=== PATIENT | female | born 1965 | race Caucasian/White ===

== ENCOUNTER 2016-10-28 12:01 | Emergency (ER) | payer BC ==
[2016-10-28 12:29] VITALS: BP 148/79
--- NOTE | 2016-10-28 13:10 | UC ---
UC General HPI - HPI Summary HPI Summary: complaint of rash that appeared on 10/25/16 thought it was a bug bite but it has spread and become painful now she has burning, tingling and more pain feels more fatgiued than usual denies fever and chills has had shingles in the past with the same symptoms - History of Current Complaint Chief Complaint: UCSkin Stated Complaint: SKIN COMPLAINT Time Seen by Provider: 10/28/16 13:03 Hx Obtained From: Patient - Allergy/Home Medications Allergies/Adverse Reactions: Allergies Allergy/AdvReac Type Severity Reaction Status Date / Time Diphenhydramine Allergy Mild Agitation Verified 10/28/16 12:29 [From Benadryl] Cefaclor [From Ceclor] Allergy Rash Verified 10/28/16 12:29 Codeine Allergy Itching Verified 10/28/16 12:29 Penicillins [PCN] Allergy Rash Verified 10/28/16 12:29 PMH/Surg Hx/FS Hx/Imm Hx Previously Healthy: Yes Endocrine History Of: Reports: Diabetes - DM2 Denies: Thyroid Disease Cardiovascular History Of: Reports: Hypertension Denies: Cardiac Disorders, Pacemaker/ICD, Congestive Heart Failure Respiratory History Of: Reports: Bronchitis Denies: COPD, Asthma GI/ History Of: Denies: Ulcer, Renal Disease Neurological History Of: Reports: Migraine Comment Only: CVA - TIA Psychological History Of: Reports: Depression Cancer History Of: Denies: Breast Cancer - Surgical History Surgical History: Yes Surgery Procedure, Year, and Place: Hysterectomy, appendectomy, tonsillectomy & Adenoidectomy, - Family History Known Family History: Positive: Diabetes Negative: Cardiac Disease, Hypertension - Social History Occupation: Employed Full-time Lives: With Family Alcohol Use: None Alcohol Amount: wine or beer monthly Substance Use Type: None Smoking Status (MU): Never Smoked Tobacco - Immunization History Most Recent Influenza Vaccination: 2014 Most Recent Tetanus Shot: Jun 02 2011 Most Recent Pneumonia Vaccination: Jan 2015 Review of Systems Constitutional: Fatigue Skin: Rash Eyes: Negative ENT: Negative Respiratory: Negative Cardiovascular: Negative Gastrointestinal: Negative Genitourinary: Negative Motor: Negative Neurovascular: Negative Musculoskeletal: Negative Neurological: Negative Psychological: Negative All Other Systems Reviewed And Are Negative: Yes Physical Exam Triage Information Reviewed: Yes Appearance: No Pain Distress, Well-Nourished Vital Signs: Initial Vital Signs Temp 98.1 F 10/28/16 12:24 Pulse 88 10/28/16 12:24 Resp 16 10/28/16 12:24 BP 148/79 10/28/16 12:24 Pulse Ox 98 10/28/16 12:24 Vital Signs Reviewed: Yes Eyes: Positive: Conjunctiva Clear ENT: Positive: Pharynx normal, TMs normal Neck: Positive: No Lymphadenopathy Respiratory: Positive: Lungs clear, Normal breath sounds, No respiratory distress, No accessory muscle use Cardiovascular: Positive: RRR, No Murmur, Pulses Normal Abdomen Description: Positive: Nontender, No Organomegaly, Soft Bowel Sounds: Positive: Present Musculoskeletal: Positive: No Edema Neurological: Positive: Alert Psychological Exam: Normal Skin: Positive: Other - erythematous papules on a erythematous bases along left shoulder C4 dermatome Course/Dx - Course Course Of Treatment: exam completed. will treat with valtrex and pain medication. followup with PCP - Differential Dx - Multi-Symptom Provider Diagnoses: herpes zoster. elevated blood pressure Discharge - Discharge Plan Condition: Stable Disposition: HOME Prescriptions: ValACYclovir (*) [Valtrex 1 GM(*)] 1 gm PO TID #21 tab oxyCODONE/Acetamin 5/325 MG* [Percocet 5/325 TAB*] 1 tab PO Q4H PRN #24 tab MDD 6 PRN Reason: Pain Patient Education Materials: Shingles (ED) Referrals: Darby Holt MD [Primary Care Provider] - Additional Instructions: Please start valtrex as directed Increase fluids and rest Take acetaminophen or ibuprofen for fever or pain Please review your discharge instructions. If your symptoms do not improve please call your primary care provider or return to urgent care. Your blood pressure is elevated. Please contact your primary care provider within 1 -4 weeks for further evaluation.
== END 2016-10-28 13:22 | disposition home or self-care (01) ==
LOC: UCEAST 12:01
DX: B02.9 Zoster without complications (principal); I10 Essential (primary) hypertension; E11.9 Type 2 diabetes mellitus without complications; G43.909 Migraine, unspecified, not intractable, without status migrainosus; F32.9 Major depressive disorder, single episode, unspecified; Z90.710 Acquired absence of both cervix and uterus; Z88.1 Allergy status to other antibiotic agents; Z88.5 Allergy status to narcotic agent; Z88.0 Allergy status to penicillin; Z88.8 Allergy status to other drugs, medicaments and biological substances
CPT/HCPCS: 99212; G0463

== ENCOUNTER 2016-12-09 16:13 | Emergency (ER) | payer BC ==
--- NOTE | 2016-12-09 17:14 | ED ---
Head Injury - HPI Summary HPI Summary: Patient presents to ED after falling off a ladder and striking her head, neck and lower back. She notes to pain in the head, the neck and lower back without radiation. Denies bleeding. Denies neurological symptoms or visual disturbances. Denies speech bnormalities,. Full ROM and strength upon arrival to the ED. Family states patient is acting normally. Denies LOC, confusion. Denies N/V. - History Of Current Complaint Chief Complaint: EDHeadInjury Stated Complaint: FALL OFF 6 FT LADDER, HEAD AND BACK PAIN Time Seen by Provider: 12/09/16 16:43 Hx Obtained From: Patient Mechanism Of Injury: Blunt Trauma Onset/Duration: Started Hours Ago Onset of Pain: Immediate Severity Currently: Moderate Severity Initially: Moderate Pain Intensity: 5 Pain Scale Used: 0-10 Numeric Location of Head Injury: Occipital Character: Sharp, Throbbing Associated Signs And Symptoms: Negative - Risk Factors SDH Risk Factor: Negative Risk Factors For Cervical Spine Injury: Posterior Midline Cervical Spine Tenderness - Allergies/Home Medications Allergies/Adverse Reactions: Allergies Allergy/AdvReac Type Severity Reaction Status Date / Time Diphenhydramine Allergy Mild Agitation Verified 12/09/16 16:33 [From Benadryl] Cefaclor [From Ceclor] Allergy Rash Verified 12/09/16 16:33 Codeine Allergy Itching Verified 12/09/16 16:33 Penicillins [PCN] Allergy Rash Verified 12/09/16 16:33 PMH/Surg Hx/FS Hx/Imm Hx Previously Healthy: Yes Endocrine/Hematology History: Reports: Hx Diabetes - DM2 Denies: Hx Systemic Lupus Erythematosus, Hx Thyroid Disease Cardiovascular History: Reports: Hx Hypertension, Other Cardiovascular Problems/ Disorders - patent foramen ovale on aspirin therapy Denies: Hx Congestive Heart Failure, Hx Pacemaker/ICD Respiratory History: Denies: Hx Asthma, Hx Chronic Obstructive Pulmonary Disease (COPD) GI History: Denies: Hx Ulcer History: Denies: Hx Dialysis, Hx Renal Disease Musculoskeletal History: Reports: Hx Scoliosis - A CHILD Denies: Hx Rheumatoid Arthritis Sensory History: Reports: Hx Contacts or Glasses Opthamlomology History: Reports: Hx Contacts or Glasses Neurological History: Reports: Hx Migraine Psychiatric History: Reports: Hx Depression - Cancer History Hx Chemotherapy: No Hx Radiation Therapy: No - Surgical History Surgery Procedure, Year, and Place: Hysterectomy, appendectomy, tonsillectomy & Adenoidectomy, Hx Anesthesia Reactions: No - Immunization History Date of Tetanus Vaccine: 06/02/11 Date of Influenza Vaccine: 03/17 Hx Pertussis Vaccination: No Immunizations Up to Date: Unable to Obtain/Confirm Infectious Disease History: No Infectious Disease History: Reports: Hx Shingles Denies: Hx Clostridium Difficile, Hx Hepatitis, Hx Human Immunodeficiency Virus (HIV), Hx of Known/Suspected MRSA, Hx Tuberculosis, Traveled Outside the [place] in Last 30 Days - Family History Known Family History: Positive: Diabetes Negative: Cardiac Disease, Hypertension - Social History Occupation: Employed Full-time Lives: With Family Alcohol Use: None Alcohol Amount: wine or beer monthly Hx Substance Use: No Substance Use Type: Reports: None Hx Tobacco Use: No Smoking Status (MU): Never Smoked Tobacco Review of Systems Constitutional: Negative Eyes: Negative ENT: Negative Respiratory: Negative Positive: no symptoms reported, see HPI Positive: Arthralgia, Myalgia Positive: Headache Psychological: Normal All Other Systems Reviewed And Are Negative: Yes Physical Exam - Summary Physical Exam Summary: Complete neuro exam completed and WNL. Normal head/face inspection with no cephalohematoma. Reflexes intact. EOMI, KENNETH. No obvious confusion or memory loss per patient and family. MMSE OK. GCS 15. Patient oriented to person, place and date. No obvious deformity or signs of trauma. Patient denies LOC. Visual acuity intact. ROM, strength, reflexes un upper and lower extremity intact, sensation intact. Patient discharged with return precautions and post- concussive symptoms explained to patient. Patient agrees to follow up and return if needed. Triage Information Reviewed: Yes Vital Signs On Initial Exam: Initial Vitals Temp Pulse Resp Pulse Ox 97.2 F 82 20 95 12/09/16 16:17 12/09/16 16:17 12/09/16 16:17 12/09/16 16:17 Vital Signs Reviewed: Yes Appearance: Positive: Well-Appearing, Well-Nourished Skin: Positive: Warm, Skin Color Reflects Adequate Perfusion Head/Face: Positive: Scalp - tenderness Eyes: Positive: EOMI, KENNETH, Conjunctiva Clear Neck: Positive: Tenderness @ - occipatal area Respiratory/Lung Sounds: Positive: Clear to Auscultation, Breath Sounds Present Cardiovascular: Positive: Normal, RRR, Pulses are Symmetrical in both Upper and Lower Extremities Musculoskeletal: Positive: Pain @ - posterior cervical spine without radiation; lumbar spine without radiation or numbness or tingling Neurological: Positive: Normal, Sensory/Motor Intact, Alert, Oriented to Person Place, Time, CN Intact II-III, Reflexes Intact, Facial Symmetry, Speech Normal Psychiatric: Positive: Normal AVPU Assessment: Alert - Barton Coma Scale Best Eye Response: 4 - Spontaneous Best Motor Response: 6 - Obeys Commands Best Verbal Response: 5 - Oriented Coma Scale Total: 15 Diagnostics - Vital Signs Vital Signs Temp Pulse Resp BP Pulse Ox 12/09/16 16:19 97.2 F 95 20 140/81 95 12/09/16 16:17 97.2 F 82 20 95 - Laboratory Lab Statement: Any lab studies that have been ordered have been reviewed, and results considered in the medical decision making process. Head Injury Course/Dx Course Of Treatment: According to [place] CT Head Rules, CT WAS obtained d/t: 1.Suspected open or depressed skull fracture. 2.Trauma from dangerous mechanism (eg, fall greater than 3 feet, MVA with ejection from vehicle, or pedestrian vs. motor vehicle accident). GCS score >15 at 2h post injury. No suspected open or depressed skull fx, no sign of basal skull fx, no hemotympanum , raccoon eyes, Battles sign, CSF kaden-/rhinorrhea, no emesis after injury, Complete neuro exam completed and WNL. Normal head/face inspection with no cephalohematoma. Reflexes intact. EOMI, KENNETH, visual acuity intact. No obvious confusion or memory loss per patient and family. MMSE OK. GCS 15. Patient oriented to person, place and date. No obvious deformity noted over occipital area. Finger to nose, heel to toe OK. Speech normal, facial symmetry, normal gait, CN II-III intact. Patient denies LOC. ROM, strength, reflexes in upper and lower extremity intact, sensation intact. Patient discharged with return precautions and post-concussive symptoms explained to patient. Patient agrees to follow up and return if needed. CT cervical, lumbar and brain WNL. Patient given tylenol 650mg, flexeril 10mg and note for work. Flexeril rx. - Diagnoses Differential Diagnosis/HQI/PQRI: Cervical Sprain, Concussion Without LOC Provider Diagnoses: Fall from ladder Discharge - Discharge Plan Condition: Stable Disposition: HOME Prescriptions: Cyclobenzaprine TAB* [Flexeril TAB*] 10 mg PO BID PRN #10 tab PRN Reason: Pain Patient Education Materials: Head Injury (ED), Musculoskeletal Pain (ED) Forms: *Work Release Referrals: Darby Holt MD [Primary Care Provider] - Additional Instructions: Dx. Fall Flexeril: This medication is a muscle relaxant and can help relieve muscle spasms, muscle strain, or pain sensations. Flexeril can cause side effects that may impair your thinking or reactions. Be careful if you drive or do anything that requires you to be awake and alert. Avoid drinking alcohol, which can increase some of the side effects of Flexeril. Ibuprofen 600mg three times daily with meals for discomfort. Return to ED if symptoms worsen or fail to improve, notice worsening swelling, warmth or redness around the joint, develop fever, or pain is uncontrolled with OTC medications. Moist heat to the area for comfort. Warm showers or baths may improve symptoms. It is important to remain mobile as tolerated to prevent stiffening of the joints and delay healing. Follow up with your PCP. If symptoms remain for > 6 weeks, please seek special medical attention from an orthopedic physician. Images - Images Head: 1 - pain on palpation 2 - pain on palpation
--- NOTE | 2016-12-09 17:36 | RAD ---
HISTORY: Fall, neck trauma COMPARISONS: None TECHNIQUE: Multiple contiguous axial CT scans were obtained of the cervical spine without intravenous contrast, with coronal and sagittal multiplanar reformations. FINDINGS: BRAIN: The visualized brain is unremarkable CENTRAL CANAL: Evaluation of the central canal is limited on CT technique; however, there is no obvious canalicular mass or epidural hemorrhage. ALIGNMENT: There is straightening with reversal of the normal cervical lordosis. VERTEBRAL BODIES: The odontoid process is intact. The atlantoaxial intervals are symmetric. The vertebral bodies are normal in attenuation, without fracture. There is anterolateral marginal osteophyte formation at C5-C6. JOINTS: There is mild diffuse uncovertebral and facet hypertrophy. There is fusion of the facet joints at C2-C3 on the right MUSCULATURE: Unremarkable INTERVERTEBRAL DISCS: There is diffuse loss of intervertebral disc height. AXIAL IMAGES: C2-C3: There is no osseous neural foraminal narrowing or central canal stenosis. C3-C4: There is no osseous neural foraminal narrowing or central canal stenosis. C4-C5: There is no osseous neural foraminal narrowing or central canal stenosis. C5-C6: There is no osseous neural foraminal narrowing or central canal stenosis. C6-C7: There is no osseous neural foraminal narrowing or central canal stenosis. C7-T1: There is no osseous neural foraminal narrowing or central canal stenosis. SOFT TISSUES: The visualized soft tissues of the neck are unremarkable. The prevertebral fat stripe is preserved. OTHER: None. IMPRESSION: 1. STRAIGHTENING WITH REVERSAL OF THE NORMAL CERVICAL LORDOSIS. 2. MILD DEGENERATIVE DISC DISEASE AND OSTEOARTHRITIS, WITHOUT OSSEOUS NEURAL FORAMINAL NARROWING OR CENTRAL CANAL STENOSIS. 3. NO ACUTE OSSEOUS INJURY TO THE CERVICAL SPINE
--- NOTE | 2016-12-09 17:36 | RAD ---
HISTORY: Fall, back pain COMPARISONS: None TECHNIQUE: Multiple contiguous axial CT scans were obtained of the lumbar spine without intravenous contrast, with coronal and sagittal multiplanar reformations. FINDINGS: SPINAL CANAL: Evaluation of the central canal is limited on CT technique; however, there is no obvious canalicular mass or epidural hemorrhage. ALIGNMENT: The alignment is normal. VERTEBRAL BODIES: The vertebral bodies are preserved in height. The bones are normal in attenuation. There is no displaced fracture JOINTS: There is mild facet hypertrophy change along the lower lumbar spine. MUSCULATURE: Unremarkable INTERVERTEBRAL DISCS: There is mild diffuse loss of intervertebral disc height throughout the spine. AXIAL IMAGES: T12-L1: There is no osseous neural foraminal narrowing or central canal stenosis. L1-L2: There is no osseous neural foraminal narrowing or central canal stenosis. L2-L3: There is no osseous neural foraminal narrowing or central canal stenosis. L3-L4: There is no osseous neural foraminal narrowing or central canal stenosis. L4-L5: There is no osseous neural foraminal narrowing or central canal stenosis. L5-S1: There is no osseous neural foraminal narrowing or central canal stenosis. SOFT TISSUES: The visualized soft tissues of the abdomen are unremarkable. OTHER: There is osteoarthritis of the SI joints IMPRESSION: MILD DEGENERATIVE CHANGES. NO OSSEOUS NEURAL FORAMINAL NARROWING OR CENTRAL CANAL STENOSIS. NO ACUTE OSSEOUS INJURY TO THE LUMBAR SPINE.
--- NOTE | 2016-12-09 17:36 | RAD ---
HISTORY: Head trauma COMPARISONS: None TECHNIQUE: Multiple contiguous axial CT scans were obtained of the head without intravenous contrast. FINDINGS: HEMORRHAGE/INFARCT: There is no hemorrhage or acute infarct. MASSES/SHIFT: There is no mass or shift. EXTRA-AXIAL SPACES: There are no extra-axial fluid collections. SULCI AND VENTRICLES: The sulci and ventricles are normal in size and position for the patient's stated age. CEREBRUM: There are no focal parenchymal abnormalities. BRAINSTEM: There are no focal parenchymal abnormalities. CEREBELLUM: There are no focal parenchymal abnormalities. VESSELS: The vessels are grossly normal. PARANASAL SINUSES: The paranasal sinuses are clear. ORBITS: The orbits are unremarkable. BONES AND SOFT TISSUE: No bone or soft tissue abnormalities are noted. OTHER: None IMPRESSION: NO ACUTE INTRACRANIAL PATHOLOGY.
[2016-12-09] MEDS ORDERED: Acetaminophen TAB* 325 MG PO ONE (17:47)
[2016-12-09] MEDS ORDERED: Cyclobenzaprine TAB* 10 MG PO ONE ×2 (17:47→18:07)
[2016-12-09 18:17] VITALS: BP 125/76
== END 2016-12-09 18:17 | disposition home or self-care (01) ==
LOC: ED 16:13
DX: R51 Headache (principal); E11.9 Type 2 diabetes mellitus without complications; F32.9 Major depressive disorder, single episode, unspecified; W11.XXXA Fall on and from ladder, initial encounter; Y92.9 Unspecified place or not applicable; Z88.0 Allergy status to penicillin; Z88.5 Allergy status to narcotic agent
CPT/HCPCS: 70450; 72125; 72131; 99282; A9270-GY

== ENCOUNTER 2017-07-15 09:06 | Emergency (ER) | payer BC ==
[2017-07-15] MEDS ORDERED: Aspirin TAB* 325 MG PO ONE (09:11)
--- NOTE | 2017-07-15 09:38 | ED ---
HPI Chest Pain - HPI Summary HPI Summary: The patient is a 52-year-old female who presents to the ED with chief complaint of acute onset left sided anterior chest pain radiating to the neck and left arm. History of secundum atrial septal defect and is followed carefully by Dr. Abernathy. Chest pain is described as a discomfort and a pressure and does not radiate to the back. He endorses associated nausea. She has had this in the past, with negative workups. PMH includes type II diabetic, high cholesterol, hypertension. She takes 2 baby aspirin daily, atorvastatin, metformin 1000 mg, sertraline, and valsartan. She denies any abdominal pain, back pain, shortness of breath, headache. Endorses mild weakness, stating she is "fatigued." Extra stressors include work. Denies any smoking history. Family history includes diabetes, but no cardiac history. Symptoms are aggravated by nothing, relieved with nothing. Compared to one hour ago when symptoms began, she states she feels only slightly better, but still endorses pain. - History of Current Complaint Chief Complaint: EDChestPainROMI Time Seen by Provider: 07/15/17 09:10 Hx Obtained From: Patient Onset/Duration: Started Hours Ago Timing: Constant Initial Severity: Mild Current Severity: Mild Pain Intensity: 5 Pain Scale Used: 0-10 Numeric Chest Pain Location: Left Anterior Chest Pain Radiates: Yes Chest Pain Radiates To:: Arm, Jaw, Neck Character: Dull/Aching Aggravating Factor(s): Nothing Alleviating Factor(s): Nothing Associated Signs and Symptoms: Positive: Chest Pain, Nausea. Negative: Chills, Lightheadedness, Palpitations, Cough, Calf Pain/Swelling, Vomiting, URI, Hoarseness - Risk Factors Pulmonary Embolism Risk Factors: Negative TAD Risk Factors: Negative AMI/ACS Risk Factors: Diabetes, Dyslipidemia - Additional Pertinent History Primary Care Physician: [id number] - Allergy/Home Medications Allergies/Adverse Reactions: Allergies Allergy/AdvReac Type Severity Reaction Status Date / Time cefaclor Allergy Rash Verified 07/15/17 10:30 codeine Allergy Itching Verified 07/15/17 10:30 Penicillins Allergy Rash Verified 07/15/17 10:30 Home Medications: Home Medications Atorvastatin* [Lipitor*] 20 mg PO DAILY 07/15/17 [History Confirmed 07/15/17] Calcium Carbonate/Vitamin D3 [Calcium 600 + Vit D Tablet] 2 each PO DAILY [History Confirmed 07/15/17] ValACYclovir (*) [Valtrex 1 GM(*)] 1 gm PO TID PRN 07/15/17 [History Confirmed 07/15/17] PMH/Surg Hx/FS Hx/Imm Hx Previously Healthy: Yes Endocrine/Hematology History: Reports: Hx Diabetes - DM2 Denies: Hx Anticoagulant Therapy, Hx Systemic Lupus Erythematosus, Hx Thyroid Disease Cardiovascular History: Reports: Hx Hypertension, Other Cardiovascular Problems/ Disorders - patent foramen ovale on aspirin therapy Denies: Hx Congestive Heart Failure, Hx Pacemaker/ICD Respiratory History: Denies: Hx Asthma, Hx Chronic Obstructive Pulmonary Disease (COPD) GI History: Denies: Hx Ulcer History: Denies: Hx Dialysis, Hx Renal Disease Musculoskeletal History: Reports: Hx Scoliosis - A CHILD Denies: Hx Rheumatoid Arthritis Sensory History: Reports: Hx Contacts or Glasses Opthamlomology History: Reports: Hx Contacts or Glasses Neurological History: Reports: Hx Migraine Psychiatric History: Reports: Hx Depression - Cancer History Hx Chemotherapy: No Hx Radiation Therapy: No - Surgical History Surgery Procedure, Year, and Place: Hysterectomy, appendectomy, tonsillectomy & Adenoidectomy, Hx Anesthesia Reactions: No - Immunization History Date of Tetanus Vaccine: 06/02/11 Date of Influenza Vaccine: 03/17 Infectious Disease History: No Infectious Disease History: Reports: Hx Shingles Denies: Hx Clostridium Difficile, Hx Hepatitis, Hx Human Immunodeficiency Virus (HIV), Hx of Known/Suspected MRSA, Hx Tuberculosis, Traveled Outside the [place] in Last 30 Days - Family History Known Family History: Positive: Diabetes Negative: Cardiac Disease, Hypertension - Social History Occupation: Employed Full-time Lives: With Family Alcohol Use: None Alcohol Amount: wine or beer monthly Hx Substance Use: No Substance Use Type: Reports: None Hx Tobacco Use: No Smoking Status (MU): Never Smoked Tobacco Review of Systems - ROS Summary Review of Systems Summary: Constitutional: The patient denies fever, GALAN, sweats or chills. HEENT: Head: The patient denies headaches or dizziness. Eyes: The patient denies diplopia, blurry vision, eye pain, eye discharge, photophobia. Throat: The patient denies sore throats or hoarseness. Cardiovascular: The patient denies palpitations, syncope, night cramps, or orthostasis. Endorses left anterior chest pain radiating to the left arm and neck. Respiratory: The patient denies cough, sputum production, hemoptysis, dyspnea, wheezing. Gastrointestinal: The patient denies odynophagia, dysphagia, hematemesis, melenemesis. Denies abdominal pain, nausea or vomiting. Denies constipation or diarrhea. Genitourinary: Patient denies dysuria, hematuria, or pyuria. Patient denies back pain. Denies vaginal discharge, vaginal bleeding. Denies other urinary symptoms. Muscles: The patient denies myalgia, strain or weakness. Joints: The patient denies arthralgia and/or arthritis. Denies edema. Neurologic: The patient denies headache, loss of consciousness, or seizure. Endorses slight weakness. Dermatologic: The patient denies hyperpigmentation, rash, or photosensitivity. Constitutional: Negative Negative: Fever, Chills, Fatigue Eyes: Negative Positive: Chest Pain Respiratory: Negative Positive: Nausea Positive: no symptoms reported, see HPI Musculoskeletal: Negative Skin: Negative Psychological: Normal All Other Systems Reviewed And Are Negative: Yes Physical Exam - Summary Physical Exam Summary: Appearance: WDW, comfortable, pleasant, alert Skin: Soft dry skin, no lesions. Nailbeds pink with no cyanosis or clubbing. No petechia noted. Eyes: KENNETH, EOMI, Conjunctiva pink with no redness or exudates. Mouth: Dentition without lesions. Moist mucosa Neck: Full range of motion. Palpable thyroid. Trachea at midline. No lymphadenopathy. Pulm: Chest symmetrical expansion. No deformities on posterior chest wall. Lungs clear to auscultation and percussion, without adventitious sounds. CV: No JVD. No deformities on anterior chest wall. Heart sounds. RRR. Normal S1 and single S2. No S3, S4, rubs, or murmurs. Carotids 2+ bilaterally without bruits. . exam not performed GI: Bowel sounds WNL in all 4 quadrants. No pain on deep palpation of all 4 quadrants. Negative blackwell's, negative obturator. Psoas not performed. No pain over Mcburney's point. Musculoskeletal: Flexion and extension of neck without limitations. ROM WNL in all extremities. No deformities noted. Pulses +2 bilaterally. Neuro: Motor strength is 5/5 in upper and lower extremities bilaterally. A&OX3 Psych: Logical, coherent Triage Information Reviewed: Yes Vital Signs On Initial Exam: Initial Vitals Temp Pulse Resp BP Pulse Ox 97.8 F 94 18 126/105 96 07/15/17 09:08 07/15/17 09:08 07/15/17 09:08 07/15/17 09:08 07/15/17 09:08 Vital Signs Reviewed: Yes Appearance: Positive: Well-Appearing, Well-Nourished Skin: Positive: Warm, Skin Color Reflects Adequate Perfusion Head/Face: Positive: Normal Head/Face Inspection Eyes: Positive: EOMI, KENNETH, Conjunctiva Clear Neck: Positive: Supple, Nontender, No Lymphadenopathy Respiratory/Lung Sounds: Positive: Clear to Auscultation Cardiovascular: Positive: RRR, Pulses are Symmetrical in both Upper and Lower Extremities Musculoskeletal: Positive: Normal, Strength/ROM Intact Neurological: Positive: Speech Normal Psychiatric: Positive: Normal, Affect/Mood Appropriate AVPU Assessment: Alert Diagnostics - Vital Signs Vital Signs Temp Pulse Resp BP Pulse Ox 07/15/17 09:20 97 07/15/17 09:08 97.8 F 94 18 126/105 96 - Laboratory Result Diagrams: 07/15/17 09:26 07/15/17 09:26 Lab Statement: Any lab studies that have been ordered have been reviewed, and results considered in the medical decision making process. Chest Pain Course/Dx - Course Course Of Treatment: During the course of treatment, the patient is evaluated for left-sided anterior chest pain which radiates into the jaw and down to the left arm, without radiation to the back. Denies any recent URI. X-ray and labs obtained. EKG shows sinus rhythm with a rate of 82. On arrival her vital signs are stable. She is not given aspirin on arrival, as she has taken 162 mg this morning. Low risk for PE, due to no recent travel, no smoking history, no known malignancy, no calf pain, and chest pain is not worse with deep inhalation. 2 troches obtained and both 0.00. X-ray obtained which shows no acute cardiopulmonary disease. Other labs within normal limits except a slightly elevated lactic acid at 2.9, however on previous visits her lactic acid is always slightly elevated. Dr. Gandara called after first troponin obtained and he recommended second troponin and to follow-up with Dr. Ramesh that if everything else appears normal. Prior to discharge, patient endorses much improvement of pain and nausea. She is given a note for work and is okay for discharge at this time. - Diagnoses Provider Diagnoses: Chest pain Discharge - Discharge Plan Condition: Stable Disposition: HOME Patient Education Materials: Chest Pain (ED) Forms: *Work Release Referrals: Darby Holt MD [Primary Care Provider] - Peyman Abernathy MD [Medical Doctor] - Additional Instructions: Please follow-up with Dr. Abernathy Call today for an appointment Continue with her home medications as prescribed If you develop any changing or worsening symptoms, return to the ED immediately
[2017-07-15 09:39] LABS: ABS Basophils 0.1 10^3/ul (0-0.2); ABS Eosinophils 0.1 10^3/ul (0-0.6); ABS Lymphocytes 2.3 10^3/ul (1.0-4.8); ABS Monocytes 0.4 10^3/ul (0-0.8); ABS Neutrophils 3.7 10^3/ul (1.5-7.7); ABS Nucleated RBC 0 10^3/ul; Eosinophil % 1.7 % (0-6); Hematocrit 43 % (35-47); Lymphocyte % 34.6 % (25-47); Mean Corpuscular HGB Conc 35 g/dl (31-36); Mean Corpuscular Hemoglobin 29 pg (27-31); Mean Corpuscular Volume 83 fL (80-97); Mean Platelet Volume 8 um3 (7.4-10.4); Nucleated Red Blood Cells % 0; Platelet Count 255 10^3/ul (150-450); Red Cell Distribution Width 13 % (10.5-15); White Blood Count 6.5 10^3/ul (3.5-10.8)
[2017-07-15] MEDS ORDERED: Ondansetron INJ* 2 MG/ML VIAL IV ONE (09:40)
--- NOTE | 2017-07-15 09:45 | RAD ---
Indication: Mid chest pain that radiates to the LEFT arm and jaw. Comparison: July 31, 2016 chest radiograph and May 06, 2012 CT. Technique: Upright AP 0925 hours Report: Clear lungs and pleural spaces. Negative for pneumothorax. The heart, pulmonary vasculature, and mediastinal contours are unremarkable. Unremarkable osseous structures and soft tissue contours. IMPRESSION: No evidence for acute intrathoracic disease.
[2017-07-15] MEDS ORDERED: NS 0.9% 1000 ML* 1,000 ML IV ONE (10:50)
[2017-07-15 12:37] VITALS: BP 115/83
== END 2017-07-15 12:57 | disposition home or self-care (01) ==
LOC: ED 09:06
DX: R07.9 Chest pain, unspecified (principal); E11.9 Type 2 diabetes mellitus without complications; I10 Essential (primary) hypertension; Q21.1 Atrial septal defect; Z79.82 Long term (current) use of aspirin; E78.5 Hyperlipidemia, unspecified
CPT/HCPCS: 36415; 71045; 80053; 82553; 83605; 83735; 84484; 85025; 93005; 96360; 96374; 99282; J2405

== ENCOUNTER 2017-07-17 10:21 | Emergency (ER) | payer BC ==
[2017-07-17] MEDS ORDERED: Ketorolac INJ* 60 MG/2 ML VIAL IM ONE (10:39)
[2017-07-17] MEDS ORDERED: LORazepam TAB(*) 1 MG PO ONE (10:39)
--- NOTE | 2017-07-17 12:29 | RAD ---
HISTORY: Back pain, subacute trauma COMPARISONS: December 09, 2016 TECHNIQUE: Multiple contiguous axial CT scans were obtained of the lumbar spine without intravenous contrast, with coronal and sagittal multiplanar reformations. FINDINGS: SPINAL CANAL: Evaluation of the central canal is limited on CT technique; however, there is no obvious canalicular mass or epidural hemorrhage. ALIGNMENT: The alignment is normal. VERTEBRAL BODIES: The vertebral bodies are preserved in height. The bones are normal in attenuation. JOINTS: There is no subluxation or dislocation. MUSCULATURE: Unremarkable INTERVERTEBRAL DISCS: There is mild diffuse loss of intervertebral disc height throughout the spine. AXIAL IMAGES: T12-L1: There is no osseous neural foraminal narrowing or central canal stenosis. L1-L2: There is no osseous neural foraminal narrowing or central canal stenosis. L2-L3: There is no osseous neural foraminal narrowing or central canal stenosis. L3-L4: There is no osseous neural foraminal narrowing or central canal stenosis. L4-L5: There is no osseous neural foraminal narrowing or central canal stenosis. L5-S1: There is no osseous neural foraminal narrowing or central canal stenosis. SOFT TISSUES: The visualized soft tissues of the abdomen are unremarkable. OTHER: None IMPRESSION: MILD DEGENERATIVE CHANGES, WITHOUT OSSEOUS NEURAL FORAMINAL NARROWING OR CENTRAL CANAL STENOSIS.
[2017-07-17 12:59] VITALS: BP 106/58
--- NOTE | 2017-07-17 16:47 | ED ---
Laura Solano Gabriel, scribed for Nathanael Velasquez MD on 07/17/17 at 1039 . Back Pain - HPI Summary HPI Summary: This patient is a 52 year old F presenting to [facility] with a chief complaint of lower back pain since last night. The pt states she was pulling up her stockings yesterday and she felt a pop in her back, the pain has gotten worse since yesterday. The patient rates the pain 10/10 in severity and located right above her hips. Symptoms aggravated by movement. Symptoms alleviated by lying on her side. Patient reports the pain radiates down her right leg. Patient denies weakness and bowel/urinary incontinence. She states she can feel something shift when she walks. She has taken Tylenol and muscle relaxer for pain. Pt has no history of back issues. - History of Current Complaint Chief Complaint: EDBackInjuryPain Stated Complaint: BACK PAIN Time Seen by Provider: 07/17/17 10:30 Hx Obtained From: Patient Onset/Duration: Lasting Days - 1, Still Present Onset/Duration: Started Days Ago, Still Present Timing: Constant Severity Initially: Moderate Severity Currently: Severe Pain Intensity: 10 Pain Scale Used: 0-10 Numeric Aggravating Symptom(s): Movement, Bending Associated Signs And Symptoms: Negative: Weakness, Bladder Incontinence, Bowel Incontinence - Allergies/Home Medications Allergies/Adverse Reactions: Allergies Allergy/AdvReac Type Severity Reaction Status Date / Time cefaclor Allergy Rash Verified 07/15/17 10:30 codeine Allergy Itching Verified 07/15/17 10:30 Penicillins Allergy Rash Verified 07/15/17 10:30 PMH/Surg Hx/FS Hx/Imm Hx Endocrine/Hematology History: Reports: Hx Diabetes - DM2 Denies: Hx Anticoagulant Therapy, Hx Systemic Lupus Erythematosus, Hx Thyroid Disease Cardiovascular History: Reports: Hx Hypertension, Other Cardiovascular Problems/ Disorders - patent foramen ovale on aspirin therapy Denies: Hx Congestive Heart Failure, Hx Pacemaker/ICD Respiratory History: Denies: Hx Asthma, Hx Chronic Obstructive Pulmonary Disease (COPD) GI History: Denies: Hx Ulcer History: Denies: Hx Dialysis, Hx Renal Disease Musculoskeletal History: Reports: Hx Scoliosis - A CHILD Denies: Hx Rheumatoid Arthritis Sensory History: Reports: Hx Contacts or Glasses Opthamlomology History: Reports: Hx Contacts or Glasses Neurological History: Reports: Hx Migraine Psychiatric History: Reports: Hx Depression - Cancer History Hx Chemotherapy: No Hx Radiation Therapy: No - Surgical History Surgery Procedure, Year, and Place: Hysterectomy, appendectomy, tonsillectomy & Adenoidectomy, Hx Anesthesia Reactions: No - Immunization History Date of Tetanus Vaccine: 06/02/11 Date of Influenza Vaccine: 03/17 Infectious Disease History: No Infectious Disease History: Reports: Hx Shingles Denies: Hx Clostridium Difficile, Hx Hepatitis, Hx Human Immunodeficiency Virus (HIV), Hx of Known/Suspected MRSA, Hx Tuberculosis, Traveled Outside the [place] in Last 30 Days - Family History Known Family History: Positive: Diabetes Negative: Cardiac Disease, Hypertension - Social History Alcohol Use: None Alcohol Amount: wine or beer monthly Hx Substance Use: No Substance Use Type: Reports: None Hx Tobacco Use: No Smoking Status (MU): Never Smoked Tobacco Review of Systems Respiratory: Negative - incontinence Gastrointestinal: Negative - incontinence Positive: Other - lower back pain Negative: Weakness All Other Systems Reviewed And Are Negative: Yes Physical Exam - Summary Physical Exam Summary: Appearance: The patient is well-nourished in no acute distress and in no acute pain. Skin: The skin is warm and dry and skin color reflects adequate perfusion. HEENT: The head is normocephalic and atraumatic. The pupils are equal and reactive. The conjunctivae are clear and without drainage. Nares are patent and without drainage. Mouth reveals moist mucous membranes and the throat is without erythema and exudate. The external ears are intact. The ear canals are patent and without drainage. The tympanic membranes are intact. Neck: the neck is supple with full range of motion and non-tender. There are no carotid bruits. There is no neck vein distension. Respiratory: Chest is non-tender. Lungs are clear to auscultation and breath sounds are symmetrical and equal. Cardiovascular: Heart is regular rate and rhythm. There is no murmur or rub auscultated. There is no peripheral edema and pulses are symmetrical and equal. Abdomen: The abdomen is soft and non-tender. There are normal bowel sounds heard in all four quadrants and there is no organomegaly palpated. Musculoskeletal: There is no back tenderness noted. Extremities are non-tender with full range of motion. There is good capillary refill. There is no peripheral edema or calf tenderness elicited. Back: Positive straight leg raise at 45 degrees on the right. TTP in parasacral area Neurological: Patient is alert and oriented to person, place and time. The patient has symmetrical motor strength in all four extremities. Cranial nerves are grossly intact. Deep tendon reflexes are symmetrical and equal in all four extremities. Psychiatric: The patient has an appropriate affect and does not exhibit any anxiety or depression. Triage Information Reviewed: Yes Vital Signs On Initial Exam: Initial Vitals Temp Pulse Resp BP Pulse Ox 97.7 F 111 20 143/94 97 07/17/17 10:22 07/17/17 10:22 07/17/17 10:22 07/17/17 10:22 07/17/17 10:22 Vital Signs Reviewed: Yes Diagnostics - Vital Signs Vital Signs Temp Pulse Resp BP Pulse Ox 07/17/17 10:22 97.7 F 111 20 143/94 97 - Laboratory Lab Statement: Any lab studies that have been ordered have been reviewed, and results considered in the medical decision making process. - CT CT L-spine CT Interpretation Completed By: Radiologist - MILD DEGENERATIVE CHANGES, WITHOUT OSSEOUS NEURAL FORAMINAL NARROWING OR CENTRAL CANAL STENOSIS. ED physician has reviewed this radiology report. Back Pain Course/Dx - Course Course Of Treatment: Jaja presented after feeling a pop in her low back yesterday and having increasing pain sinc then to the point she can hardly walk today, I hurts to move but she has no weakness or B&B symptoms. After IM ketorolac and PO lorazepam as a muscle relaxer, she was about half improved and could lie down for the exam. Imaging was negative and I will treat her conservatively with NSAIDs and mucle relaxers. - Diagnoses Provider Diagnoses: Low back strain Discharge - Discharge Plan Condition: Stable Disposition: HOME Prescriptions: LORazepam TAB(*) [Ativan TAB(*)] 1 mg PO Q6H PRN #20 tab MDD 4 PRN Reason: Pain traMADol TAB* [Ultram*] 50 mg PO Q6HR PRN #20 tab MDD 4 PRN Reason: Pain Patient Education Materials: Lorazepam (By mouth), Tramadol (By mouth), Low Back Strain (ED) Forms: *Work Release Referrals: Darby Holt MD [Primary Care Provider] - 3 Days Additional Instructions: Take ibuprofen as needed for pain. RETURN TO EMERGENCY DEPARTMENT FOR ANY NEW OR WORSENING SYMPTOMS The documentation as recorded by the scribe, Sanchez,Nawaf accurately reflects the service I personally performed and the decisions made by me, Nathanael Velasquez MD.
== END 2017-07-17 13:12 | disposition home or self-care (01) ==
LOC: ED 10:21
DX: S39.012A Strain of muscle, fascia and tendon of lower back, initial encounter (principal); M54.5 Low back pain; E11.9 Type 2 diabetes mellitus without complications; Z86.79 Personal history of other diseases of the circulatory system; X50.9XXA Other and unspecified overexertion or strenuous movements or postures, initial encounter; Y92.9 Unspecified place or not applicable
CPT/HCPCS: 72131; 96372; 99282; A9270-GY; J1885

== ENCOUNTER 2018-07-17 09:20 | Emergency (ER) | payer BC ==
[2018-07-17] MEDS ORDERED: Ondansetron ODT TAB* 4 MG SL ONE (09:38)
--- OUTSIDE RECORDS SUMMARY | 2018-07-17 09:48 | XMS REPORT | Continuity of Care Document ---
:1965 External Reference #:[id number] Author Name Ajay Johnson Care Team Providers Name Role Phone Darby Holt MD Primary Care Physician Unavailable Payers Type Date Identification Numbers Payment Provider Subscriber Effective: Policy Number: [id number] [employer] Azul Mcallister 2011 PayID: [id number] [address] [address] [place] [address] Effective: 2011 Policy Number: [id number] [employer] [place] Azul Mcallister Expires: 2011 PayID: [id number] [address] [address] [place] [address] Effective: 2009 Policy Number: [id number] [employer] Azul Mcallister Expires: 2011 Group Name: Ppo [address] PayID: [id number] [place] [id number] Advance Directives Description No Information Available Problems Date Description Provider Status Onset: 05/09/2009 Benign essential hypertension Darby Holt M.D. Active Onset: 06/11/2011 Aneurysm of heart Brennon Canales M.D. Onset: 06/11/2011 Electrocardiogram abnormal Brennon Canales M.D. Onset: 07/23/2011 Ostium secundum type atrial septal Brennon Canales defect [place] Onset: 07/23/2011 Mitral valve disorder Brennon Canales M.D. Onset: 12/29/2014 Diabetes mellitus Darby Holt M.D. 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[place] [employer] Tobacco Use Start: Unknown Never Smoked Cigarettes ETOH Use Denies alcohol use Recreational Drug Use Denies Drug Use Tobacco Use Start: Unknown Patient has never smoked Smoking Status Reviewed: 06/25/18 Patient has never smoked Exercise Type/Frequency Exercises regularly Allergies, Adverse Reactions, Alerts Date Description Reaction Status Severity Comments 03/24/2009 Penicillins rash Active Severe 03/24/2009 ceclor rash Active Severe 03/24/2009 Codeine Sulfate skin itches Active Severe 06/23/2015 Benadryl made her jumpy Active Medications Medication Date Status Form Strength Qnty SIG Indications Ordering Provider Atorvastatin 05/08 Active Tablets 20mg 30tab Take 1 tablet E78.2 Darby Calcium /2017 s by mouth Cotton, every day M.D. Trulicity 05/01 Active Solution 1.5mg/0.5 2ml inject 1 dose E11.65 Darby Pen-Inject ML subcutaneousl Cotton, y once weekly M.D. Irbesartan-Hy 01/28 Active Tablets 150-12.5m 30tab 1 by mouth I10 Darby drochlorothia /2017 g s every day bin Holt M.D. Freestyle 07/03 Active Strip 50uni for testing Darby Lite Test /2016 ts once daily [place] Holt Glucocom 12/29 Active Kit W/Device 1unit for testing Darby Blood Glucose /2014 s once daily Cotton Monitoring M.D. System Value Kit Glucocom Test 12/29 Active Strips 50uni for testing Darby /2014 ts once daily [place] Holt Glucocom 12/29 Active Misc 33G 100un for use once Darby Lancets 33G /2014 its daily Cotton M.DJaxon Sertraline 03/01 Active Tablets 50mg 45tab take 1 and F32.9 Darby HCL /2010 s 1/2 tablet by Cotton, mouth once M.D. daily Calcium-D 03/24 Active Capsules 600-200mg 60cap 2 capsules - s daily [place] Holt Aspirin Active Tablets 81mg 180ta 2 by mouth Darby bs every day [place] Holt Tramadol HCL Active Tablets 50mg 120ta 1 tablet Darby bs every 4 hours Jonathon, as needed for M.D. pain Metformin HCL Active Tablets ER 1000mg bid Gerber ER (Mod) 24HR ALESSANDRA Hwangulicdev 01/28 Hx Solution 0.75mg/0. 2ml inject 0.75mg E11.65 Pen-Inject 5ML once a week Selina Holt M.Gavin 05/01 Losartan 12/30 Hx Tablets 50-12.5mg 30tab 1 by mouth s every day Jonathon rochlorothiaz - [place] candi 01/28 Gabapentin 03/11 Hx Capsules 300mg 90cap take 1 PO 3 B02.9 s times daily Selina Holt M.DJaxon 08/06 Valacyclovir 03/08 Hx Tablets 1gm Skinny, Bertha Estrella MD 03/16 Lipitor 10/19 Hx Tablets 20mg 30tab 1 by mouth E78.2 s every day Selina Holt MSharon 05/08 Azithromycin 07/31 Hx Tablets 250mg 6tabs two tabs day J20. one, one Varn, N.P. - daily till 08/10 Benzonatate 07/31 Hx Capsules 100mg 30cap one by mouth J20.9 s three times Varn, N.P. - daily as 08/14 needed for cough Ventolin HFA 07/31 Hx Aerosol 108(90Bas 1inha 1 to 2 J20. e) ler inhalations Varn, N.P. - mcg/Act every 4 hours 08/06 as needed Tamiflu 07/31 Hx Capsules 75mg 10cap 1 tab by s mouth twice a Jonathon, - day for 5 M.D. Prednisone 12/18 Hx Tablets 20mg 10tab 2 tablets by L23.7 Dylan /2015 s mouth daily Brazilian, MANAGER PUBLIC - x's 5 days in 12/23 the morning Hydroxyzine 12/18 Hx Tablets 25mg 60tab 1-2 tab by L23.7 Dylan HCL s mouth every 6 Brazilian, MANAGER PUBLIC - hours as 07/31 needed for itching Lipitor 11/13 Hx Tablets 10mg 30tab 1 by mouth E78.2 Darby s every day Selina Holt M.D. 10/19 Metformin HCL 11/13 Hx Tablets ER 500mg 90tab take 3 Darby ER 24HR s tablets by Jonathon, - mouth every M.D. Azithromycin 08/03 Hx Tablets 250mg 6tabs 2 tabs by J06.9 Darby mouth on day Jonathon, - 1; 1 tab by [place] 08/10 mouth every day on days 2-5 Metformin HCL 12/29 Hx Tablets 500mg 30tab 1 tab po qd s with dinner Jonathon - M.DJaxon 11/13 Ultram 02/12 Hx Tablets 50mg 60tab 1-2 po bid s prn, take Usha, - with ES M.D. 11/10 tylenol Azithromycin 01/29 Hx Tablets 250mg 6tabs 2 tabs po on 462 day 1; 1 tab Jonathon, - po qd on days M.D. 11/10 2- Zolpidem 10/28 Hx Tablets 5mg 30tab 1/2 po tablet Darby Tartrate s at bedtime as Jonathon - needed M.D. 11/10 Valsartan-Hyd 05/15 Hx Tablets 80-12.5mg 30tab take 1 tablet Darby rochlorothiaz s by mouth once Jonathon, candi - daily M.D. 12/30 Diovan HCT 06/25 Hx Tablets 80-12.5mg 90tab 1 po qd 401.9 Darby /2012 s Selina Holt.Gavin 05/15 Zolpidem 06/19 Hx Tablets 10mg 30tab 1/2 - 1 780.52 Darby Tartrate s tablet once Cotton, - daily at M.D. 05/15 bedtime Azithromycin 05/25 Hx Tablets 250mg 6tabs two tabs day 461.9 one, one Cotton, - daily till M.D. 06/08 Fluticasone 05/25 Hx Suspension 50mcg/Act 1Mont 1 spray each 461.9 Darby h nostril daily Jonathon, - as needed M.D. 06/08 Azithromycin 05/15 Hx Tablets 250mg 6tabs 2 tabs po on 466.0 day 1; 1 tab Cotton, - po qd on days M.D. 05/25 2- Tessalon 05/11 Hx Capsules 200mg 40cap 1 tablet 3 465.9 s times daily Jonathon, - as needed M.D. 11/16 Premarin 03/24 Hx Tablets 1.25mg 90tab 1 tablet s daily Jonathon, - M.D. 05/10 Lisinopril-Hy 03/24 Hx Tablets 20-12.5mg 30tab 1 po qd 401.9 Darby drochlorothi s bin Holt - .DJaxon 03/24 Multi-Vitamin 03/24 Hx Tablets 90tab 1 tablet Darby /Minerals s daily Jonathon - M.D. 08/06 Atacand HCT 03/24 Hx Tablets 16-12.5mg 30tab 1 tablet 401.9 s daily Jonathon - M.D. 06/25 Diovan HCT 03/24 Hx Tablets 80-12.5mg 28tab 401.9 Darby /2009 s Lavelle - M.D. 03/24 Tramadol HCL Hx Tablets 50mg 120ta qid prn Unknown /0000 bs - 09/23 Sulfamethoxaz Hx Tablets 30tab 1 po bid Unknown ole/Trimethop /0000 s rim DS - 01/29 Lidocaine Hx Solution 2% 100ml 10 ml q 3hrs Unknown Viscous /0000 swish and - spit out 11/16 Prednisone Hx Tablets 20mg 20tab ) Unknown /0000 s - 01/29 Zofran Hx Tablets 4mg 30tab 1 tab by Darby /0000 s mouth every 6 Cotton, - hours as M.D. 08/06 needed nausea Lorazepam Hx Tablets 1mg Ron, /0000 Selina Huffman MD 08/06 Immunizations CPT Code Status Date Vaccine Lot # [id number] Given 01/31/2015 Pneumonia Vaccine [id number] Given 03/01/2011 Influenza Virus 3Yrs & Over [id number] Vital Signs Date Vital Result Comment 06/25/2018 3:42pm Height 68 inches 5'8" Weight 173.00 lb with shoes Heart Rate 108 /min BP Systolic Sitting 124 mmHg BP Diastolic Sitting 82 mmHg BMI (Body Mass Index) 26.3 kg/m2 Ejection Fraction 55% stress echo 10/01/17 05/01/2018 7:47am Height 68 inches 5'8" Weight 187.00 lb Heart Rate 97 /min BP Systolic 131 mmHg BP Diastolic 83 mmHg Body Temperature 97.3 F O2 % BldC Oximetry 95 % BMI (Body Mass Index) 28.4 kg/m2 01/28/2018 8:39am Height 68 inches 5'8" Weight 184.00 lb Heart Rate 88 /min BP Systolic Sitting 128 mmHg BP Diastolic Sitting 88 mmHg O2 % BldC Oximetry 95 % BMI (Body Mass Index) 28.0 kg/m2 11/22/2017 8:39am Height 68 inches 5'8" Weight 185.00 lb Heart Rate 97 /min BP Systolic Sitting 131 mmHg BP Diastolic Sitting 83 mmHg O2 % BldC Oximetry 96 % BMI (Body Mass Index) 28.1 kg/m2 10/22/2017 2:26pm Height 68 inches 5'8" Weight 188.00 lb Heart Rate 97 /min BP Systolic 141 mmHg BP Diastolic 99 mmHg O2 % BldC Oximetry 98 % BMI (Body Mass Index) 28.6 kg/m2 08/07/2017 9:17am Height 68 inches 5'8" Weight 188.00 lb w/boots Heart Rate 92 /min BP Systolic Sitting 132 mmHg LA reg cuff BP Diastolic Sitting 98 mmHg LA reg cuff BMI (Body Mass Index) 28.6 kg/m2 Ejection Fraction 55-60% Echo 01/26/15 10/19/2016 10:55am Height 68 inches 5'8" Weight 193.75 lb Heart Rate 112 /min BP Systolic 140 mmHg BP Diastolic 90 mmHg Body Temperature 96.0 F O2 % BldC Oximetry 98 % BMI (Body Mass Index) 29.5 kg/m2 10/18/2016 10:08am Height 68 inches 5'8" Weight 180.00 lb BP Systolic 119 mmHg BP Diastolic 77 mmHg Body Temperature 97.6 F Pain Level 5 BMI (Body Mass Index) 27.4 kg/m2 10/01/2016 2:38pm Heart Rate 93 /min BP Systolic 122 mmHg BP Diastolic 78 mmHg Body Temperature 97.4 F O2 % BldC Oximetry 98 % 07/31/2016 4:16pm Height 68 inches 5'8" Weight 190.00 lb Heart Rate 105 /min BP Systolic 120 mmHg BP Diastolic 78 mmHg Body Temperature 99.7 F O2 % BldC Oximetry 97 % BMI (Body Mass Index) 28.9 kg/m2 06/08/2016 4:37pm Weight 183.00 lb Heart Rate 108 /min BP Systolic 132 mmHg BP Diastolic 90 mmHg BP Systolic Sitting 136 mmHg BP Diastolic Sitting 102 mmHg O2 % BldC Oximetry 96 % 12/19/2015 2:50pm Height 689 inches 57'5" Weight 185.12 lb Heart Rate 107 /min BP Systolic Sitting 126 mmHg BP Diastolic Sitting 82 mmHg Body Temperature 98.1 F BMI (Body Mass Index) 0.3 kg/m2 12/01/2015 9:20am Weight 185.00 lb Heart Rate 90 /min BP Systolic Sitting 122 mmHg BP Diastolic Sitting 80 mmHg Respiratory Rate 15 /min Body Temperature 98.0 F O2 % BldC Oximetry 98 % 11/14/2015 4:07pm Weight 180.00 lb Heart Rate 108 /min BP Systolic Sitting 124 mmHg BP Diastolic Sitting 82 mmHg Respiratory Rate 15 /min Body Temperature 98.6 F O2 % BldC Oximetry 99 % 08/04/2015 3:19pm Heart Rate 86 /min BP Systolic Sitting 126 mmHg BP Diastolic Sitting 95 mmHg Body Temperature 97.4 F O2 % BldC Oximetry 97 % 06/23/2015 11:48am Height 68 inches 5'8" Weight 179.50 lb Heart Rate 87 /min BP Systolic Sitting 132 mmHg BP Diastolic Sitting 86 mmHg Body Temperature 97.1 F Pain Level 4 O2 % BldC Oximetry 95 % BMI (Body Mass Index) 27.3 kg/m2 01/31/2015 4:22pm Height 68 inches 5'8" Weight 187.00 lb Heart Rate 84 /min BP Systolic Sitting 122 mmHg BP Diastolic Sitting 82 mmHg Body Temperature 98.0 F O2 % BldC Oximetry 98 % BMI (Body Mass Index) 28.4 kg/m2 01/04/2015 4:11pm Height 68 inches 5'8" Weight 190.00 lb w/shoes Heart Rate 88 /min BP Systolic Sitting 132 mmHg LA reg cuff BP Diastolic Sitting 84 mmHg LA reg cuff Respiratory Rate 14 /min BMI (Body Mass Index) 28.9 kg/m2 Ejection Fraction 55 Hardeep 06/12/11 12/29/2014 9:30am Heart Rate 107 /min BP Systolic Sitting 125 mmHg BP Diastolic Sitting 86 mmHg 02/16/2014 2:00pm Height 68 inches 5'8" Weight 192.00 lb Heart Rate 80 /min BP Systolic Sitting 136 mmHg BP Diastolic Sitting 88 mmHg Body Temperature 97.2 F BMI (Body Mass Index) 29.2 kg/m2 12/03/2013 3:19pm Height 68 inches 5'8" Weight 189.00 lb Heart Rate 80 /min BP Systolic Sitting 116 mmHg BP Diastolic Sitting 86 mmHg Body Temperature 97.7 F BMI (Body Mass Index) 28.7 kg/m2 11/16/2013 4:16pm Height 68 inches 5'8" Weight 188.25 lb Heart Rate 88 /min BP Systolic Sitting 164 mmHg BP Diastolic Sitting 92 mmHg Respiratory Rate 16 /min BMI (Body Mass Index) 28.6 kg/m2 11/12/2013 10:47am Height 68 inches 5'8" Weight 187.25 lb Heart Rate 92 /min BP Systolic Sitting 128 mmHg BP Diastolic Sitting 84 mmHg Body Temperature 97.4 F O2 % BldC Oximetry 94 % BMI (Body Mass Index) 28.5 kg/m2 11/10/2013 9:56am Height 68 inches 5'8" Weight 187.00 lb Heart Rate 78 /min BP Systolic Sitting 130 mmHg BP Diastolic Sitting 88 mmHg Body Temperature 99.6 F BMI (Body Mass Index) 28.4 kg/m2 01/29/2013 12:58pm Weight 179.00 lb Heart Rate 96 /min BP Systolic Sitting 134 mmHg BP Diastolic Sitting 86 mmHg Body Temperature 98.3 F 11/18/2012 3:59pm Height 67.5 inches 5'7.50" Weight 176.00 lb Heart Rate 92 /min home unit 84 BP Systolic 122 mmHg 123/63 BP Diastolic 64 mmHg 123/63 BMI (Body Mass Index) 27.2 kg/m2 11/05/2012 1:01pm Height 67.5 inches 5'7.50" Weight 178.00 lb Heart Rate 78 /min BP Systolic 144 mmHg BP Diastolic 98 mmHg BMI (Body Mass Index) 27.5 kg/m2 09/23/2012 3:01pm Weight 175.00 lb Heart Rate 74 /min BP Systolic Sitting 126 mmHg BP Diastolic Sitting 82 mmHg 05/15/2012 4:32pm Height 67.5 inches 5'7.50" Weight 175.50 lb Heart Rate 72 /min BP Systolic Sitting 122 mmHg BP Diastolic Sitting 80 mmHg Body Temperature 98.2 F BMI (Body Mass Index) 27.1 kg/m2 07/23/2011 9:45am Height 67.5 inches 5'7.50" Weight 181.00 lb Heart Rate 74 /min BP Systolic 122 mmHg BP Diastolic 78 mmHg BMI (Body Mass Index) 27.9 kg/m2 06/19/2011 12:53pm Height 67.5 inches 5'7.50" Weight 185.00 lb Heart Rate 74 /min BP Systolic Sitting 128 mmHg BP Diastolic Sitting 78 mmHg BMI (Body Mass Index) 28.5 kg/m2 06/11/2011 9:06am Height 67.5 inches 5'7.50" Weight 185.00 lb Heart Rate 76 /min BP Systolic Sitting 124 mmHg L BP Diastolic Sitting 82 mmHg L BMI (Body Mass Index) 28.5 kg/m2 05/25/2011 2:58pm Height 67.5 inches 5'7.50" Weight 183.00 lb Heart Rate 80 /min BP Systolic Sitting 112 mmHg BP Diastolic Sitting 70 mmHg Body Temperature 98.8 F BMI (Body Mass Index) 28.2 kg/m2 05/10/2011 9:25am Height 67.5 inches 5'7.50" Weight 183.00 lb Heart Rate 72 /min BP Systolic Sitting 100 mmHg BP Diastolic Sitting 68 mmHg BMI (Body Mass Index) 28.2 kg/m2 04/09/2011 11:38am Height 67.5 inches 5'7.50" Weight 184.00 lb Heart Rate 76 /min BP Systolic Sitting 128 mmHg BP Diastolic Sitting 74 mmHg BMI (Body Mass Index) 28.4 kg/m2 03/29/2011 1:53pm Height 67.5 inches 5'7.50" Weight 185.00 lb Heart Rate 76 /min BP Systolic Sitting 122 mmHg BP Diastolic Sitting 72 mmHg BMI (Body Mass Index) 28.5 kg/m2 03/13/2011 1:18pm Height 67.5 inches 5'7.50" Weight 184.00 lb Heart Rate 74 /min BP Systolic Sitting 122 mmHg BP Diastolic Sitting 72 mmHg BMI (Body Mass Index) 28.4 kg/m2 03/01/2011 8:58am Height 67.5 inches 5'7.50" Weight 185.00 lb Heart Rate 66 /min BP Systolic Sitting 126 mmHg BP Diastolic Sitting 70 mmHg BMI (Body Mass Index) 28.5 kg/m2 05/15/2010 9:18am Weight 183.00 lb Heart Rate 106 /min BP Systolic 110 mmHg BP Diastolic 80 mmHg Body Temperature 98.3 F O2 % BldC Oximetry 98 % 05/11/2010 1:17pm Weight 183.50 lb Heart Rate 88 /min BP Systolic 110 mmHg BP Diastolic 76 mmHg Body Temperature 99.1 F 07/19/2009 8:50am Height 68 inches 5'8" Weight 184.00 lb Heart Rate 94 /min BP Systolic Sitting 140 mmHg BP Diastolic Sitting 88 mmHg Body Temperature 97.6 F BMI (Body Mass Index) 28.0 kg/m2 03/24/2009 3:05pm Height 68 inches 5'8" Weight 176.25 lb Heart Rate 80 /min BP Systolic Sitting 114 mmHg BP Diastolic Sitting 80 mmHg Respiratory Rate 16 /min Body Temperature 98.8 F BMI (Body Mass Index) 26.8 kg/m2 Results Test Date Facility Test Result H/L Range Note Laboratory test 05/01/2018 [facility] Hemoglobin A1c 8.1 High 5-7 finding Laboratory test 01/28/2018 [facility] Hemoglobin A1c 8.1 High 5-7 finding Lipid Profile 10/29/2017 [facility] Triglycerides 151 mg/dL 1 (Trig/Chol/HDL) [address] [place] [address] [phone] Cholesterol 154 mg/dL 2 HDL Cholesterol 47.1 mg/dL 3 LDL Cholesterol 77 mg/dL 4 Comp Metabolic Panel 10/29/2017 [facility] Sodium 138 mmol/L Low 139-145 [address] [place], [place] [id number] [phone] Potassium 3.7 mmol/L N 3.5-5.0 Chloride 99 mmol/L Low 101-111 Co2 Carbon Dioxide 27 mmol/L N 22-32 Anion Gap 12 mmol/L High 2-11 Glucose 168 mg/dL High 70-100 Blood Urea Nitrogen 15 mg/dL N 6-24 Creatinine 0.62 mg/dL N 0.51-0.95 BUN/Creatinine Ratio 24.2 High 8-20 Calcium 9.6 mg/dL N 8.6-10.3 Total Protein 7.3 g/dL N 6.4-8.9 Albumin 4.6 g/dL N 3.2-5.2 Globulin 2.7 g/dL N 2-4 Albumin/Globulin Ratio 1.7 N 1-3 Total Bilirubin 0.60 mg/dL N 0.2-1.0 Alkaline Phosphatase 127 U/L High 34-104 Alt 25 U/L N 7-52 Ast 26 U/L N 13-39 Egfr Non- 101.5 >60 Egfr 130.5 >60 5 Urine Microalbumin 10/29/2017 [facility] Ur Microalbumin 34.6 mg /L Random [address] (mg/L) [place] [address] [phone] Urine Creatinine 287.10 mg/dL Urine Microalbumin/Creatinine 12.0 ug/mg N <31 Laboratory test 10/29/2017 [facility] Vitamin B12 318 pg/mL N 180-914 [address] [place] [address] [phone] Laboratory test 10/22/2017 [facility] Hemoglobin A1c 8.3 High 5-7 finding Rapid Influenza 09/08/2017 [facility] Influenza A NEGATIVE Negative 7 A & B Molecular [address] [place] [address] [phone] Influenza B Molecular NEGATIVE Negative Laboratory test 07/15/2017 [facility] Troponin-I (TnI) 0.00 ng/ mL <0.[address] [place] [address] [phone] Lipid Profile 10/17/2016 [facility] Triglycerides 139 mg/dL N 8 (Trig/Chol/HDL) [address] [place] [address] [phone] Cholesterol 181 mg/dL N 9 HDL Cholesterol 49.9 mg/dL N 10 LDL Cholesterol 103 mg/dL N 11 Comp Metabolic Panel 10/17/2016 [facility] Sodium 137 mmol/L N 133-[address] [place] [address] [phone] Potassium 3.9 mmol/L N 3.5-5.0 Chloride 100 mmol/L Low 101-111 Co2 Carbon Dioxide 27 mmol/L N 22-32 Anion Gap 10 mmol/L N 2-11 Glucose 159 mg/dL High 70-100 Blood Urea Nitrogen 15 mg/dL N 6-24 Creatinine 0.62 mg/dL N 0.51-0.95 BUN/Creatinine Ratio 24.2 High 8-20 Calcium 9.8 mg/dL N 8.6-10.3 Total Protein 7.5 g/dL N 6.4-8.9 Albumin 4.5 g/dL N 3.2-5.2 Globulin 3.0 g/dL N 2-4 Albumin/Globulin Ratio 1.5 N 1-3 Total Bilirubin 0.50 mg/dL N 0.2-1.0 Alkaline Phosphatase 118 U/L High 34-104 Alt 32 U/L N 7-52 Ast 34 U/L N 13-39 Egfr Non- 101.9 N >60 Egfr 131.0 N >60 12 Urine Microalbumin 10/17/2016 [facility] Urine Creatinine 239.25 mg/dL N Random [address] [place] [address] [phone] Ur Microalbumin (mg/L) 38.9 mg/L N Urine Microalbumin/Creatinine 16.2 ug/mg N <31 Laboratory test 10/01/2016 [facility] Hemoglobin A1c 6.9 5-7 finding Rapid Influenza A 07/31/2016 [facility] Influenza A NEGATIVE N Negative 13 & B Molecular [address] [place] [address] [phone] Influenza B Molecular POSITIVE Abnormal Negative Laboratory test 07/31/2016 [facility] Influenza A & B SEE RESULT [address] [place] [address] [phone] Comp Metabolic 06/05/2016 [facility] Sodium 135 mmol/L N 133- [address] [place] [address] [phone] Potassium 3.8 mmol/L N 3.5-5.0 Chloride 102 mmol/L N 101-111 Co2 Carbon Dioxide 27 mmol/L N 22-32 Anion Gap 6 mmol/L N 2-11 Glucose 143 mg/dL High 70-100 Blood Urea Nitrogen 16 mg/dL N 6-24 Creatinine 0.59 mg/dL N 0.51-0.95 BUN/Creatinine Ratio 27.1 High 8-20 Calcium 9.5 mg/dL N 8.6-10.3 Total Protein 7.2 g/dL N 6.4-8.9 Albumin 4.4 g/dL N 3.2-5.2 Globulin 2.8 g/dL N 2-4 Albumin/Globulin Ratio 1.6 N 1-3 Total Bilirubin 0.50 mg/dL N 0.2-1.0 Alkaline Phosphatase 116 U/L High 34-104 Alt 25 U/L N 7-52 Ast 26 U/L N 13-39 Egfr Non- 107.9 N >60 Egfr 138.8 N >60 15 Laboratory test 06/05/2016 [facility] Hemoglobin A1c 7.0 % High Less than [address] (Glyco HGB) 6.0 [place] [address] [phone] CBC Auto Diff 02/27/2016 [facility] White Blood 8.3 N 3.5- 10.[address] Count 10^3/[place] [address] [phone] Red Blood Count 5.20 10^6/uL N 4.0-5.4 Hemoglobin 14.5 g/dL N 12.0-16.0 Hematocrit 43 % N 35-47 Mean Corpuscular Volume 83 fL N 80-97 Mean Corpuscular Hemoglobin 28 pg N 27-31 Mean Corpuscular HGB Conc 34 g/dL N 31-36 Red Cell Distribution Width 13 % N 10.5-15 Platelet Count 289 10^3/uL N 150-450 Mean Platelet Volume 8 um3 N 7.4-10.4 Abs Neutrophils 6.2 10^3/uL N 1.5-7.7 Abs Lymphocytes 1.4 10^3/uL N 1.0-4.8 Abs Monocytes 0.3 10^3/uL N 0-0.8 Abs Eosinophils 0 10^3/uL N 0-0.6 Abs Basophils 0.4 10^3/uL High 0-0.2 Abs Nucleated RBC 0 10^3/uL N Granulocyte % 74.9 % N 38-83 Lymphocyte % 16.3 % Low 25-47 Monocyte % 3.9 % N 1-9 Eosinophil % 0.3 % N 0-6 Basophil % 4.6 % High 0-2 Nucleated Red Blood Cells % 0 N Basic Metabolic Panel 02/27/2016 [facility] Sodium 135 mmol/L N 133-145 [address] [place] [address] [phone] Potassium 3.5 mmol/L N 3.5-5.0 Chloride 97 mmol/L Low 101-111 Co2 Carbon Dioxide 28 mmol/L N 22-32 Anion Gap 10 mmol/L N 2-11 Glucose 178 mg/dL High 70-100 Blood Urea Nitrogen 17 mg/dL N 6-24 Creatinine 0.68 mg/dL N 0.51-0.95 BUN/Creatinine Ratio 25.0 High 8-20 Calcium 9.8 mg/dL N 8.6-10.3 Egfr Non- 91.6 N >60 Egfr 117.8 N >60 17 Lipid Profile 12/15/2015 [facility] Triglycerides 153 mg/dL N 18 (Trig/Chol/HDL) [address] [place] [address] [phone] Cholesterol 170 mg/dL N 19 HDL Cholesterol 53.7 mg/dL N 20 LDL Cholesterol 86 mg/dL N 21 Comp Metabolic Panel 12/15/2015 [facility] Sodium 138 mmol/L N 133-145 [address] [place] [address] [phone] Potassium 3.9 mmol/L N 3.5-5.0 Chloride 103 mmol/L N 101-111 Co2 Carbon Dioxide 25 mmol/L N 22-32 Anion Gap 10 mmol/L N 2-11 Glucose 129 mg/dL High 70-100 Blood Urea Nitrogen 15 mg/dL N 6-24 Creatinine 0.57 mg/dL N 0.51-0.95 BUN/Creatinine Ratio 26.3 High 8-20 Calcium 9.9 mg/dL N 8.6-10.3 Total Protein 6.9 g/dL N 6.4-8.9 Albumin 4.5 g/dL N 3.2-5.2 Globulin 2.4 g/dL N 2-4 Albumin/Globulin Ratio 1.9 N 1-3 Total Bilirubin 0.40 mg/dL N 0.2-1.0 Alkaline Phosphatase 113 U/L High 34-104 Alt 19 U/L N 7-52 Ast 22 U/L N 13-39 Egfr Non- 112.7 N >60 Egfr 145.0 N >60 22 Laboratory test 11/24/2015 [facility] Point of Care 120 mg/dL High 74-106 [address] [place] [address] [phone] Urine 11/08/2015 [facility] Ur Microalbumin 7.0 mg/L N Microalbumin [address] (mg/L) [place] [address] [phone] Urine Creatinine 32.47 mg/dL N Urine Microalbumin/Creatinine 21.5 ug/mg N <31 Laboratory test 11/08/2015 [facility] Hemoglobin A1c 6.4 % High Less than [address] (Glyco HGB) 6.[address] [place] [address] [phone] Comp Metabolic 11/08/2015 [facility] Sodium 137 N 133-[address] mmol/[place] [address] [phone] Potassium 4.0 mmol/L N 3.5-5.0 Chloride 99 mmol/L Low 101-111 Co2 Carbon Dioxide 30 mmol/L N 22-32 Anion Gap 8 mmol/L N 2-11 Glucose 127 mg/dL High 70-100 Blood Urea Nitrogen 14 mg/dL N 6-24 Creatinine 0.59 mg/dL N 0.51-0.95 BUN/Creatinine Ratio 23.7 High 8-20 Calcium 10.1 mg/dL N 8.6-10.3 Total Protein 7.5 g/dL N 6.4-8.9 Albumin 4.9 g/dL N 3.2-5.2 Globulin 2.6 g/dL N 2-4 Albumin/Globulin Ratio 1.9 N 1-3 Total Bilirubin 0.70 mg/dL N 0.2-1.0 Alkaline Phosphatase 104 U/L N 34-104 Alt 25 U/L N 7-52 Ast 25 U/L N 13-39 Egfr Non- 108.3 N >60 Egfr 139.3 N >60 25 Lipid Profile 11/08/2015 [facility] Triglycerides 265 mg/dL N 26 (Trig/Chol/HDL) [address] [place] [address] [phone] Cholesterol 260 mg/dL N 27 HDL Cholesterol 54.3 mg/dL N 28 LDL Cholesterol 153 mg/dL N 29 Laboratory test 06/20/2015 [facility] Lactic Acid 1.5 mmol/L N 0.5-2.[address] [place] [address] [phone] Comp Metabolic 06/20/2015 [facility] Sodium 138 mmol/L N 133- [address] [place] [address] [phone] Potassium 3.9 mmol/L N 3.5-5.0 Chloride 103 mmol/L N 101-111 Co2 Carbon Dioxide 26 mmol/L N 22-32 Anion Gap 9 mmol/L N 2-11 Glucose 116 mg/dL High 70-100 Blood Urea Nitrogen 13 mg/dL N 6-24 Creatinine 0.56 mg/dL N 0.51-0.95 BUN/Creatinine Ratio 23.2 High 8-20 Calcium 9.5 mg/dL N 8.6-10.3 Total Protein 7.3 g/dL N 6.4-8.9 Albumin 4.6 g/dL N 3.2-5.2 Globulin 2.7 g/dL N 2-4 Albumin/Globulin Ratio 1.7 N 1-3 Total Bilirubin 0.40 mg/dL N 0.2-1.0 Alkaline Phosphatase 112 U/L High 34-104 Alt 22 U/L N 7-52 Ast 20 U/L N 13-39 Egfr Non- 115.1 N >60 Egfr 148.0 N >60 31 Laboratory test 06/20/2015 [facility] Hemoglobin A1c 5.8 % N Less [address] (Glyco HGB) than 6.0 [place] [address] [phone] Urine 02/17/2015 [facility] Ur Microalbumin 8.0 mg/L N Microalbumin [address] (mg/L) [place] [address] [phone] Urine Creatinine 130.88 mg/dL N Urine Microalbumin/Creatinine 6.1 ug/mg N <31 Lipid Profile 12/24/2014 [facility] Triglycerides 168 mg/dL N 33, 34 (Trig/Chol/HDL) [address] [place] [address] [phone] Cholesterol 240 mg/dL N 35 HDL Cholesterol 53.4 mg/dL N 36 LDL Cholesterol 153 mg/dL N 37 Comp Metabolic Panel 12/24/2014 [facility] Sodium 139 mmol/L N 133-[address] [place] [address] [phone] Potassium 3.8 mmol/L N 3.5-5.0 Chloride 102 mmol/L N 101-111 Co2 Carbon Dioxide 27 mmol/L N 22-32 Anion Gap 10 mmol/L N 2-11 Glucose 164 mg/dL High 70-100 Blood Urea Nitrogen 15 mg/dL N 6-24 Creatinine 0.59 mg/dL N 0.51-0.95 BUN/Creatinine Ratio 25.4 High 8-20 Calcium 9.7 mg/dL N 8.6-10.3 Total Protein 7.3 g/dL N 6.4-8.9 Albumin 4.6 g/dL N 3.2-5.2 Globulin 2.7 g/dL N 2-4 Albumin/Globulin Ratio 1.7 N 1-3 Total Bilirubin 0.50 mg/dL N 0.2-1.0 Alkaline Phosphatase 114 U/L High 34-104 Alt 54 U/L High 7-52 Ast 65 U/L High 13-39 Egfr Non- 108.8 N >60 Egfr 139.9 N >60 38 Laboratory test 12/24/2014 [facility] Hemoglobin A1c 6.9 % High Less [address] (Glyco HGB) than 6.0 [place] [address] [phone] Laboratory test 03/25/2014 [facility] Erythrocyte Sed 14 mm/Hr N 0-[address] [place] [address] [phone] Comp Metabolic 03/25/2014 [facility] Sodium 135 N 133-[address] mmol/[place] [address] [phone] Potassium 3.4 mmol/L Low 3.7-5.6 Chloride 100 mmol/L Low 101-111 Co2 Carbon Dioxide 26 mmol/L N 22-32 Anion Gap 9 mmol/L N 2-11 Glucose 168 mg/dL High 70-100 Blood Urea Nitrogen 12 mg/dL N 6-24 Creatinine 0.58 mg/dL N 0.51-0.95 BUN/Creatinine Ratio 20.7 High 8-20 Calcium 9.2 mg/dL N 8.6-10.3 Total Protein 6.9 g/dL N 6.4-8.9 Albumin 4.3 g/dL N 3.2-5.2 Globulin 2.6 g/dL N 2-4 Albumin/Globulin Ratio 1.7 N 1-3 Total Bilirubin 0.50 mg/dL N 0.2-1.0 Alkaline Phosphatase 108 U/L High 34-104 Alt 49 U/L N 7-52 Ast 63 U/L High 13-39 Egfr Non- 111.0 N >60 Egfr 142.7 N >60 40 CBC Auto Diff 03/25/2014 [facility] White Blood 9.8 10^3/uL N 4.8-10.[address] Count [place], [place] [id number] [phone] Red Blood Count 5.01 10^6/uL N 4.0-5.4 Hemoglobin 14.5 g/dL N 12.0-16.0 Hematocrit 42 % N 35-47 Mean Corpuscular Volume 85 fL N 80-97 Mean Corpuscular Hemoglobin 29 pg N 27-31 Mean Corpuscular HGB Conc 34 g/dL N 31-36 Red Cell Distribution Width 13 % N 10.5-15 Platelet Count 259 10^3/uL N 150-450 Mean Platelet Volume 7 um3 Low 7.4-10.4 Abs Neutrophils 7.8 10^3/uL High 1.5-7.7 Abs Lymphocytes 1.4 10^3/uL N 1.0-4.8 Abs Monocytes 0.5 10^3/uL N 0-0.8 Abs Eosinophils 0.1 10^3/uL N 0-0.6 Abs Basophils 0.1 10^3/uL N 0-0.2 Abs Nucleated RBC 0 10^3/uL N Granulocyte % 79.1 % N 38-83 Lymphocyte % 14.4 % Low 25-47 Monocyte % 5.2 % N 1-9 Eosinophil % 0.7 % N 0-6 Basophil % 0.6 % N 0-2 Nucleated Red Blood Cells % 0 N Comp Metabolic Panel 02/16/2014 [facility] Sodium 137 mmol/L N 133-[address] [place] [address] [phone] Potassium 4.1 mmol/L N 3.7-5.6 Chloride 101 mmol/L N 101-111 Co2 Carbon Dioxide 28 mmol/L N 22-32 Anion Gap 8 mmol/L N 2-11 Glucose 137 mg/dL High 70-100 Blood Urea Nitrogen 15 mg/dL N 6-24 Creatinine 0.55 mg/dL N 0.51-0.95 BUN/Creatinine Ratio 27.3 High 8-20 Calcium 9.7 mg/dL N 8.6-10.3 Total Protein 7.2 g/dL N 6.4-8.9 Albumin 4.5 g/dL N 3.2-5.2 Globulin 2.7 g/dL N 2-4 Albumin/Globulin Ratio 1.7 N 1-3 Total Bilirubin 0.40 mg/dL N 0.2-1.0 Alkaline Phosphatase 133 U/L High 34-104 Alt 33 U/L N 7-52 Ast 37 U/L N 13-39 Egfr Non- 118.0 N >60 Egfr 151.7 N >60 41 CBC Auto Diff 02/16/2014 [facility] White Blood 7.6 10^3/uL N 4.8-10.[address] [place] [address] [phone] Red Blood Count 5.20 10^6/uL N 4.0-5.4 Hemoglobin 15.2 g/dL N 12.0-16.0 Hematocrit 44 % N 35-47 Mean Corpuscular Volume 85 fL N 80-97 Mean Corpuscular Hemoglobin 29 pg N 27-31 Mean Corpuscular HGB Conc 34 g/dL N 31-36 Red Cell Distribution Width 13 % N 10.5-15 Platelet Count 288 10^3/uL N 150-450 Mean Platelet Volume 8 um3 N 7.4-10.4 Abs Neutrophils 4.0 10^3/uL N 1.5-7.7 Abs Lymphocytes 2.7 10^3/uL N 1.0-4.8 Abs Monocytes 0.5 10^3/uL N 0-0.8 Abs Eosinophils 0.2 10^3/uL N 0-0.6 Abs Basophils 0.1 10^3/uL N 0-0.2 Abs Nucleated RBC 0.01 10^3/uL N Granulocyte % 53.6 % N 38-83 Lymphocyte % 35.9 % N 25-47 Monocyte % 6.6 % N 1-9 Eosinophil % 2.9 % N 0-6 Basophil % 1.0 % N 0-2 Nucleated Red Blood Cells % 0.1 N Laboratory test 02/16/2014 [facility] Erythrocyte Sed 11 mm/Hr N 0-[address] [place] [address] [phone] Lyme Disease Serology Negative N Negative 42 TSH (Thyroid Stimulating Horm) 1.82 IU/mL N 0.34-5.60 GGTP 81 U/L High 9-64.0 Liver Function 02/04/2014 [facility] Total Protein 7.1 g/dL N 6.4-8.[address] [place] [address] [phone] Albumin 4.5 g/dL N 3.2-5.2 Globulin 2.6 g/dL N 2-4 Albumin/Globulin Ratio 1.7 N 1-3 Total Bilirubin 0.70 mg/dL N 0.2-1.0 Direct Bilirubin 0.10 mg/dL N 0.03-0.18 Indirect Bilirubin 0.6 mg/dL N 0.3-1.0 Alkaline Phosphatase 123 U/L High 34-104 Alt 37 U/L N 7-52 Ast 48 U/L High 13-39 Lipid Profile 09/07/2013 [facility] Triglycerides 154 mg/dL N 43 (Trig/Chol/HDL) [address] [place] [address] [phone] Cholesterol 238 mg/dL N 44 HDL Cholesterol 53.1 mg/dL N 45 LDL Cholesterol 154 mg/dL N 46 Comp Metabolic Panel 09/07/2013 [facility] Sodium 139 mmol/L N 133-[address] [place] [address] [phone] Potassium 3.9 mmol/L N 3.7-5.6 Chloride 101 mmol/L N 101-111 Co2 Carbon Dioxide 30 mmol/L N 22-32 Anion Gap 8 mmol/L N 2-11 Glucose 130 mg/dL High 70-100 Blood Urea Nitrogen 16 mg/dL N 6-24 Creatinine 0.56 mg/dL N 0.51-0.95 BUN/Creatinine Ratio 28.6 High 8-20 Calcium 9.6 mg/dL N 8.6-10.3 Total Protein 7.1 g/dL N 6.4-8.9 Albumin 4.7 g/dL N 3.2-5.2 Globulin 2.4 g/dL N 2-4 Albumin/Globulin Ratio 2.0 N 1-3 Total Bilirubin 0.70 mg/dL N 0.2-1.0 Alkaline Phosphatase 112 U/L High 34-104 Alt 48 U/L N 7-52 Ast 51 U/L High 13-39 Egfr Non- 116.0 N >60 Egfr 149.2 N >60 47 Laboratory test 09/07/2013 [facility] Hemoglobin A1c 6.1 % High Less than [address] 6[address]0 [place] [address] [phone] TSH (Thyroid Stimulating Horm) 2.17 IU/mL N 0.34-5.60 49 Ferritin 158.5 ng/mL N 11-307 50 Hepatitis 09/07/2013 [facility] Hepatitis B Nonreactive N Nonreactive Acute Panel [address] [place] [address] Antigen [phone] Hepatitis B Core IgM Nonreactive N Nonreactive Hepatitis A AB IgM Nonreactive N Nonreactive Hepatitis C Antibody Nonreactive N Nonreactive Throat-Beta 07/11/2013 [facility] Throat Beta (SEE [address] Strep Culture NOTE) [place] [address] [phone] Laboratory test 01/29/2013 [facility] Throat Beta (SEE [address] Strep Culture NOTE) [place] [address] [phone] Laboratory test 01/29/2013 [employer] In House Rapid Strep A neg finding Laboratory test 10/20/2012 [facility] Hemoglobin A1c 6.2 % High Less [address] than 6[address]0 [place] [address] [phone] Comp Metabolic 10/01/2012 [facility] Sodium 137 133-[address] mmol/[place] [address] [phone] Potassium 3.8 mmol/L 3.5-5.0 Chloride 101 mmol/L 101-111 Co2 Carbon Dioxide 28.0 mmol/L 22-32 Anion Gap 8.0 mmol/L 2-11 Glucose 122 mg/dL High 70-100 Blood Urea Nitrogen 13 mg/dL 6-24 Creatinine 0.60 mg/dL 0.50-1.40 BUN/Creatinine Ratio 21.7 High 8-20 Calcium 9.7 mg/dL 8.1-9.9 Total Protein 6.7 g/dL 6.2-8.1 Albumin 4.2 g/dL 3.6-5.4 Globulin 2.5 g/dL 2-4 Albumin/Globulin Ratio 1.7 1-3 Total Bilirubin 0.7 mg/dL 0.4-1.5 Alkaline Phosphatase 117 U/L High 30-110 Alt 29 U/L 14-54 Ast 28 U/L 12-42 Egfr Non- 107.6 >60 Egfr 138.4 >60 54 Lipid Profile 10/01/2012 [facility] Triglycerides 140 mg/dL 40-200 (Trig/Chol/HDL) [address] [place] [address] [phone] Cholesterol 251 mg/dL High Less than 200 HDL Cholesterol 60 mg/dL 40-60 55 Cholesterol/HDL Ratio 4.2 Average 1-4.44 LDL Cholesterol 163.0 mg/dL High Less Than 100 56 Laboratory test 05/14/2012 [facility] Calcium 9.7 mg/dL 8.1- 9.9 finding [address] [place] [address] [phone] Pthi 05/14/2012 [facility] PTH Intact 2.2 pmol/L 1.3-9.0 [address] [place] [address] [phone] Calcium (PTH Intact) 9.7 mg/dL 8.1-9.9 Laboratory test 05/06/2012 [facility] Lipase 32 U/L 22-51 finding [address] [place] [address] [phone] Comp Metabolic Panel 05/06/2012 [facility] Sodium 138 mmol/L 133-145 [address] [place] [address] [phone] Potassium 3.6 mmol/L 3.5-5.0 Chloride 101 mmol/L 101-111 Co2 Carbon Dioxide 29.0 mmol/L 22-32 Anion Gap 8.0 mmol/L 2-11 Glucose 115 mg/dL High 70-100 Blood Urea Nitrogen 14 mg/dL 6-24 Creatinine 0.60 mg/dL 0.50-1.40 BUN/Creatinine Ratio 23.3 High 8-20 Calcium 10.6 mg/dL High 8.1-9.9 Total Protein 7.9 g/dL 6.2-8.1 Albumin 4.5 g/dL 3.6-5.4 Globulin 3.4 GM/DL 2-4 Albumin/Globulin Ratio 1.3 1-3 Total Bilirubin 0.8 mg/dL 0.4-1.5 Alkaline Phosphatase 111 U/L High 30-110 Alt 25 U/L 14-54 Ast 29 U/L 12-42 Egfr Non- 107.6 >60 Egfr 138.4 >60 57 Laboratory test 05/06/2012 [facility] Serum Negative Negative [address] [place] [address] [phone] Laboratory test 05/06/2012 [facility] Inr 0.85 0.82-1.17 [address] [place] [address] [phone] Activated Partial Thrombo Time 34.8 sec 22.18-37.18 CBC Auto Diff 05/06/2012 [facility] White Blood 6.0 10^3/uL 4.8-10.[address] [place] [address] [phone] Red Blood Count 5.00 10^6/uL 4.0-5.4 Hemoglobin 14.8 g/dL 12.0-16.0 Hematocrit 43 % 35-47 Mean Corpuscular Volume 87 fL 80-97 Mean Corpuscular Hemoglobin 30 pg 27-31 Mean Corpuscular HGB Conc 34 g/dL 31-36 Red Cell Distribution Width 13 % 10.5-15 Platelet Count 274 10^3/uL 150-450 Mean Platelet Volume 8 um3 7.4-10.4 Abs Neutrophils 3.1 10^3/uL 1.5-7.7 Abs Lymphocytes 2.4 10^3/uL 1.0-4.8 Abs Monocytes 0.4 10^3/uL 0-0.8 Abs Eosinophils 0.1 10^3/uL 0-0.6 Abs Basophils 0.1 10^3/uL 0-0.2 Abs Nucleated RBC 0.01 10^3/uL Granulocyte % 51.7 % 38-83 Lymphocyte % 39.3 % 25-47 Monocyte % 6.4 % 1-9 Eosinophil % 1.4 % 0-6 Basophil % 1.2 % 0-2 Nucleated Red Blood Cells % 0.1 Urine Microscopic 05/06/2012 [facility] Urine WBC 1+ (<10 None Seen [address] /hpf) [place] [address] [phone] Urine RBC 1+ (<3 /hpf) None Seen Urine Epithelial Cells 1+ Squamous /hpf None Seen Bacteria Urine 1+ None Seen Urinalysis 05/06/2012 [facility] Urine Color Yellow [address] [place] [address] [phone] Urine Appearance Clear Urine Specific [place] 1.014 1.010-1.030 Urine Esterase Trace Abnormal Negative Urine Nitrate Negative Negative Urine Urobilinogen Negative Negative Urine Protein Negative Negative Urine pH 7.0 5-9 Urine Blood Negative Negative Urine Ketones Negative Negative Urine Bilirubin Negative Negative 60 Urine Glucose Negative Negative Laboratory test 04/12/2011 [facility] TSH 1.65 MIU/ML 0.34- 5.60 finding [address] [place] [address] [phone] Comp Metabolic 04/12/2011 [facility] Sodium 137 mmol/L 135- 145 Panel [address] [place] [address] [phone] Potassium 4.0 mmol/L 3.5-5.0 Chloride 102 mmol/L 101-111 Co2 (Carbon Dioxide) 28.0 mmol/L 22-32 Anion Gap 7.0 mmol/L 2-11 61 Glucose 105 mg/dL High 70-100 BUN 12 mg/dL 6-24 Creatinine 0.5 mg/dL Low 0.50-1.40 One Over Creatinine 2.00 BUN/Creatinine Ratio 24.0 High 8-20 Calcium 9.3 mg/dL 8.1-9.9 Total Protein 7.1 GM/DL 6.2-8.1 Albumin 3.9 GM/DL 3.6-5.4 Globulin 3.2 GM/DL 2-4 Albumin/Globulin Ratio 1.2 1-3 Bilirubin Total 0.7 mg/dL 0.4-1.5 62 Alkaline Phosphatase 76 U/L 30-110 Alt (SGPT) 29 U/L 14-54 Ast (Sgot) 40 U/L 12-42 eGFR Non- 133.4 > 60 eGFR 171.6 > 60 63 Lipid Profile 04/12/2011 [facility] Triglyceride 260 mg/dL High 40-200 (Trig/Chol/HDL) [address] [place] [address] [phone] Cholesterol 258 mg/dL High Less Than 200 64 High Density Lipoprotein 60 mg/dL 40-60 65 Cholesterol/HDL Ratio 4.30 AVERAGE 1-4.44 Low Density Lipoprotein 146 mg/dL High Less Than 100 66 Urinalysis 02/28/2011 [facility] Ua Color YELLOW Yellow [address] [place] [address] [phone] Appearance-Urine CLEAR Clear Specific [place]-Ur 1.013 1.010-1.030 Esterase-Urine NEGATIVE Negative Nitrite NEGATIVE Negative [id number] NEGATIVE Negative Protein-Urine NEGATIVE Negative PH-Urine 6.0 5-9 Blood-Urine NEGATIVE Negative Ketones-Urine NEGATIVE Negative Bilirubin-Ur NEGATIVE Negative Glucose-Urine NEGATIVE Negative Laboratory test 02/28/2011 [facility] CPK (Creatine 61 U/L 0- [address] [facility] Kinase) [place] [address] [phone] Troponin-I 0 NG/ML 0-0.06 67 Carbon Monoxide 2.8 % 68 Comp Metabolic Panel 02/28/2011 [facility] Sodium 134 mmol/L Low 135-145 [address] [place] [address] [phone] Potassium 3.8 mmol/L 3.5-5.0 Chloride 101 mmol/L 101-111 Co2 (Carbon Dioxide) 25.0 mmol/L 22-32 Anion Gap 8.0 mmol/L 2-11 69 Glucose 117 mg/dL High 70-100 BUN 11 mg/dL 6-24 Creatinine 0.5 mg/dL Low 0.50-1.40 One Over Creatinine 2.00 BUN/Creatinine Ratio 22.0 High 8-20 Calcium 9.1 mg/dL 8.1-9.9 Total Protein 6.3 GM/DL 6.2-8.1 Albumin 3.8 GM/DL 3.6-5.4 Globulin 2.5 GM/DL 2-4 Albumin/Globulin Ratio 1.5 1-3 Bilirubin Total 0.4 mg/dL 0.4-1.5 70 Alkaline Phosphatase 78 U/L 30-110 Alt (SGPT) 26 U/L 14-54 Ast (Sgot) 37 U/L 12-42 eGFR Non- 133.4 > 60 eGFR 171.6 > 60 71 Laboratory test 02/28/2011 [facility] BNP Evaluatr 9.0 pg/mL 0-[address] [place] [address] [phone] D Dimer Quantitative < 200 NG/ML Less Than 230 72 CBC Auto Diff 02/28/2011 [facility] White Blood 7.7 CUMM 4.8- 10.[address] [place] [address] [phone] Red Cell Count 4.61 CUMM 4.2-5.4 Hemoglobin 14.2 g/dL 12.0-16.0 Hematocrit 40 % 35-47 Mean Corpuscular Volume 87 um3 79-97 Mean Corpuscular Hemoglob 31 pg 27-31 Mean Corpuscular HGB Cone 35 g/dL 32-36 Redcell Distribution WDTH 13 % 10.5-15 Platelet Count 285 CUMM 150-450 Mean Platelet Volume 7.8 um3 7.4-10.4 Gran % 61.8 % 38-83 Lymph % 29.9 % 25-47 Mononuclear % 5.2 % 1-9 Eosinophil % 2.2 % 0-6 Basophil % 0.9 % 0-2 Abs Lymphs 2.3 1.0-4.8 Abs Mononuclear 0.4 0-0.8 Absolute Neutrophil Count 4.8 1.5-7.7 Abs Eosinophils 0.2 0-0.6 Abs Basophils 0.1 0-0.2 Laboratory test 02/28/2011 [facility] Troponin-I 0 NG/ML 0- 0.06 [address] [place] [address] [phone] CKMB 02/28/2011 [facility] CKMB In NG/ML 0.7 NG/ML 0.3-4.[address] [place] [address] [phone] % CKMB 0 %MB 0-9 74 Lipid Profile 08/25/2010 [facility] Triglyceride 199 mg/dL 40 -200 (Trig/Chol/HDL) [address] [place] [address] [phone] Cholesterol 264 mg/dL High Less Than 200 75 High Density Lipoprotein 63 mg/dL High 40-60 76 Cholesterol/HDL Ratio 4.19 AVERAGE 1-4.44 Low Density Lipoprotein 161 mg/dL High Less Than 100 77 Comp Metabolic Panel 08/25/2010 [facility] Sodium 141 mmol/L 135-145 [address] [place] [address] [phone] Potassium 3.9 mmol/L 3.5-5.0 Chloride 105 mmol/L 101-111 Co2 (Carbon Dioxide) 28.0 mmol/L 22-32 Anion Gap 8.0 mmol/L 2-11 78 Glucose 115 mg/dL High 70-100 BUN 13 mg/dL 6-24 Creatinine 0.60 mg/dL 0.50-1.40 One Over Creatinine 1.60 BUN/Creatinine Ratio 21.7 High 8-20 Calcium 9.6 mg/dL 8.1-9.9 Total Protein 7.2 GM/DL 6.2-8.1 Albumin 4.2 GM/DL 3.6-5.4 Globulin 3.0 GM/DL 2-4 Albumin/Globulin Ratio 1.4 1-3 Bilirubin Total 0.9 mg/dL 0.4-1.5 79 Alkaline Phosphatase 82 U/L 30-110 Alt (SGPT) 47 U/L 14-54 Ast (Sgot) 46 U/L High 12-42 eGFR Non- 108.6 > 60 eGFR 139.7 > 60 80 CMP Panel Stat 09/06/2009 [facility] Sodium 137 mmol/L 135- 145 [address] [place] [address] [phone] Potassium 3.3 mmol/L Low 3.5-5.0 Chloride 100 mmol/L Low 101-111 Co2 (Carbon Dioxide) 27.0 mmol/L 22-32 Anion Gap 10.0 mmol/L 2-11 81 Glucose 110 mg/dL High 70-100 82 BUN 14 mg/dL 6-24 Creatinine 0.60 mg/dL 0.50-1.40 One Over Creatinine 1.60 BUN/Creatinine Ratio 23.3 High 8-20 Calcium 9.9 mg/dL 8.1-9.9 83 Total Protein 6.6 GM/DL 6.2-8.1 Albumin 3.9 GM/DL 3.6-5.4 Globulin 2.7 GM/DL 2-4 Albumin/Globulin Ratio 1.4 1-3 Bilirubin Total 0.6 mg/dL 0.4-1.5 84 Alkaline Phosphatase 59 U/L 30-110 Alt (SGPT) 29 U/L 14-54 Ast (Sgot) 32 U/L 12-42 eGFR Non- 116.0 > 60 eGFR 140.3 > 60 85 Laboratory test 09/06/2009 [facility] Amylase Stat 61 U/L 30- [address] [place] [address] [phone] Lipase 20 U/L Low 22-51 Laboratory test 09/06/2009 [facility] Ictotest-Urine NEGATIVE [address] [place] [address] [phone] Urinalysis 09/06/2009 [facility] Ua Color YELLOW Yellow [address] [place] [address] [phone] Appearance-Urine CLEAR Clear Specific [place]-Ur 1.026 1.010-1.030 Esterase-Urine NEGATIVE Negative Nitrite NEGATIVE Negative [id number] NEGATIVE Negative Protein-Urine NEGATIVE Negative PH-Urine 5.0 5-9 Blood-Urine NEGATIVE Negative Ketones-Urine TRACE Abnormal Negative Bilirubin-Ur SEE ICTOTEST Abnormal Negative Glucose-Urine NEGATIVE Negative CBC With 09/06/2009 [facility] White Blood 15.4 CUMM High 4.8- 10.8 Manual Diff [address] [place] [address] [phone] Red Cell Count 4.76 CUMM 4.2-5.4 Hemoglobin 14.5 g/dL 12.0-16.0 Hematocrit 41 % 35-47 Mean Corpuscular Volume 86 um3 79-97 Mean Corpuscular Hemoglob 30 pg 27-31 Mean Corpuscular HGB Cone 35 g/dL 32-36 Redcell Distribution WDTH 13 % 10.5-15 Platelet Count 345 CUMM 150-450 Mean Platelet Volume 7.2 um3 Low 7.4-10.4 Polysegmented Neutrophil 84 % High 38-83 Lymphocyte 8 % Low 25-47 Monocyte 3 % 0-13 Basophil 1 % 0-2 Atypical Lymph 4 % 0-6 Absolute Neutrophil Count 12.9 Anisocytosis SLIGHT Polychromasia SLIGHT Lipid Profile 07/11/2009 [facility] Triglyceride 200 mg/dL 40 -200 (Trig/Chol/HDL) [address] [place] [address] [phone] Cholesterol 247 mg/dL High Less Than 200 87 High Density Lipoprotein 73 mg/dL High 40-60 88 Cholesterol/HDL Ratio 3.38 AVERAGE 1-4.44 Low Density Lipoprotein 134 mg/dL High Less Than 100 89 Basic Metabolic Panel 07/11/2009 [facility] Sodium 139 mmol/L 135-[address] [place] [address] [phone] Potassium 4.3 mmol/L 3.5-5.0 Chloride 104 mmol/L 101-111 Co2 (Carbon Dioxide) 28.0 mmol/L 22-32 Anion Gap 7.0 mmol/L 2-11 90 Glucose 103 mg/dL High 70-100 91 BUN 13 mg/dL 6-24 Creatinine 0.50 mg/dL 0.50-1.40 One Over Creatinine 2.00 BUN/Creatinine Ratio 26.0 High 8-20 Calcium 9.6 mg/dL 8.1-9.9 92 eGFR Non- 143.1 > 60 eGFR 173.2 > 60 93 1 Desirable: <150 Borderline High: 150-199 High: 200-499 Very High: >500 2 Desirable: <200 Borderline High: 200-239 High: >239 3 Low: <40 Desirable: 40-60 High: >60 4 Desirable: <100 Near Optimal: 100-129 Borderline High: 130-159 High: 160-189 Very High: >189 5 Because ethnic data is not always readily available, this report includes an eGFR for both -Americans and non- Americans. The National Kidney Disease Education Program (NKDEP) does not endorse the use of the MDRD equation for patients that are not between the ages of 18 and 70, are , have extremes of body size, muscle mass, or nutritional status, or are non- or non-. According to the National Kidney Foundation, irrespective of diagnosis, the stage of the disease is based on the level of kidney function: Stage Description GFR(mL/min/1.73 m(2)) 1 Kidney damage with normal or decreased GFR 90 2 Kidney damage with mild decrease in GFR 60-89 3 Moderate decrease in GFR 30-59 4 Severe decrease in GFR 15-29 5 Kidney failure <15 (or dialysis) 6 Normal Range 180 to 914 Indeterminate Range 145 to 180 Deficient Range <145 7 Blood Bank Manager: [id number] Desirable <150 Borderline high 150-199 High 200-499 Very High >500 9 Desirable <200 Borderline high 200-239 High >239 10 Low <40 Desirable: 40-60 High: >60 11 Desirable: <100 mg/dL Near Optimal: 100-129 mg/dL Borderline High: 130-159 mg/dL High: 160-189 mg/dL Very High: >189 mg/dL 12 Because ethnic data is not always readily available, this report includes an eGFR for both -Americans and non- Americans. The National Kidney Disease Education Program (NKDEP) does not endorse the use of the MDRD equation for patients that are not between the ages of 18 and 70, are , have extremes of body size, muscle mass, or nutritional status, or are non- or non-. According to the National Kidney Foundation, irrespective of diagnosis, the stage of the disease is based on the level of kidney function: Stage Description GFR(mL/min/1.73 m(2)) 1 Kidney damage with normal or decreased GFR 90 2 Kidney damage with mild decrease in GFR 60-89 3 Moderate decrease in GFR 30-59 4 Severe decrease in GFR 15-29 5 Kidney failure <15 (or dialysis) 13 Blood Bank Manager: [id number] FAHAD MARTIN 14 SEE RESULT BELOW Name: AZUL MCALLISTER : [address]: Eliza Gaxiola NP Acct: [id number] Unit: [id number] AGE: 51 Location: [facility] Re07/31/16 SEX: F Status: REG REF SPEC: [id number] JOY: 07/31/[address]: Eliza Gaxiola NP REQ: [id number] RECD: 07/31/16 STATUS: COMP _ SOURCE: [facility]: ORDERED: Flu A B Request COMMENTS: [id number] Procedure Result Reported Site Rapid Influenza A B Request Final 07/31/162001 ML Specimen received for Influenza A/B Molecular testing * ML - MAIN LAB ([facility]) . END OF REPORT * ML=Testing performed at Main Lab DEPARTMENT OF PATHOLOGY, [address] [place] [id number] Jamir Cardenas M.D. Director [facility] # [id number] 15 Because ethnic data is not always readily available, this report includes an eGFR for both -Americans and non- Americans. The National Kidney Disease Education Program (NKDEP) does not endorse the use of the MDRD equation for patients that are not between the ages of 18 and 70, are , have extremes of body size, muscle mass, or nutritional status, or are non- or non-. According to the National Kidney Foundation, irrespective of diagnosis, the stage of the disease is based on the level of kidney function: Stage Description GFR(mL/min/1.73 m(2)) 1 Kidney damage with normal or decreased GFR 90 2 Kidney damage with mild decrease in GFR 60-89 3 Moderate decrease in GFR 30-59 4 Severe decrease in GFR 15-29 5 Kidney failure <15 (or dialysis) 16 Therapeutic target for the treatment of diabetes Mellitus patients is <7% HBA1C, and in selective patients <6.0%.Please refer to [place] [employer] Diabetic care guidelines for further information. 17 Because ethnic data is not always readily available, this report includes an eGFR for both -Americans and non- Americans. The National Kidney Disease Education Program (NKDEP) does not endorse the use of the MDRD equation for patients that are not between the ages of 18 and 70, are , have extremes of body size, muscle mass, or nutritional status, or are non- or non-. According to the National Kidney Foundation, irrespective of diagnosis, the stage of the disease is based on the level of kidney function: Stage Description GFR(mL/min/1.73 m(2)) 1 Kidney damage with normal or decreased GFR 90 2 Kidney damage with mild decrease in GFR 60-89 3 Moderate decrease in GFR 30-59 4 Severe decrease in GFR 15-29 5 Kidney failure <15 (or dialysis) 18 Desirable <150 Borderline high 150-199 High 200-499 Very High >500 19 Desirable <200 Borderline high 200-239 High >239 20 Low <40 Desirable: 40-60 High: >60 21 Desirable: <100 mg/dL Near Optimal: 100-129 mg/dL Borderline High: 130-159 mg/dL High: 160-189 mg/dL Very High: >189 mg/dL 22 Because ethnic data is not always readily available, this report includes an eGFR for both -Americans and non- Americans. The National Kidney Disease Education Program (NKDEP) does not endorse the use of the MDRD equation for patients that are not between the ages of 18 and 70, are , have extremes of body size, muscle mass, or nutritional status, or are non- or non-. According to the National Kidney Foundation, irrespective of diagnosis, the stage of the disease is based on the level of kidney function: Stage Description GFR(mL/min/1.73 m(2)) 1 Kidney damage with normal or decreased GFR 90 2 Kidney damage with mild decrease in GFR 60-89 3 Moderate decrease in GFR 30-59 4 Severe decrease in GFR 15-29 5 Kidney failure <15 (or dialysis) 23 Blood Bank Manager: [id number] Pa Gore 24 Therapeutic target for the treatment of diabetes Mellitus patients is <7% HBA1C, and in selective patients <6.0%.Please refer to [employer] Diabetic care guidelines for further information. 25 Because ethnic data is not always readily available, this report includes an eGFR for both -Americans and non- Americans. The National Kidney Disease Education Program (NKDEP) does not endorse the use of the MDRD equation for patients that are not between the ages of 18 and 70, are , have extremes of body size, muscle mass, or nutritional status, or are non- or non-. According to the National Kidney Foundation, irrespective of diagnosis, the stage of the disease is based on the level of kidney function: Stage Description GFR(mL/min/1.73 m(2)) 1 Kidney damage with normal or decreased GFR 90 2 Kidney damage with mild decrease in GFR 60-89 3 Moderate decrease in GFR 30-59 4 Severe decrease in GFR 15-29 5 Kidney failure <15 (or dialysis) 26 Desirable <150 Borderline high 150-199 High 200-499 Very High >500 27 Desirable <200 Borderline high 200-239 High >239 28 Low <40 Desirable: 40-60 High: >60 29 Desirable: <100 mg/dL Near Optimal: 100-129 mg/dL Borderline High: 130-159 mg/dL High: 160-189 mg/dL Very High: >189 mg/dL 30 [place] Severe Sepsis and Septic Shock Management Bundle Measure requires all lactic acids initially measuring >2.0mmol/L be repeated. 31 Because ethnic data is not always readily available, this report includes an eGFR for both -Americans and non- Americans. The National Kidney Disease Education Program (NKDEP) does not endorse the use of the MDRD equation for patients that are not between the ages of 18 and 70, are , have extremes of body size, muscle mass, or nutritional status, or are non- or non-. According to the National Kidney Foundation, irrespective of diagnosis, the stage of the disease is based on the level of kidney function: Stage Description GFR(mL/min/1.73 m(2)) 1 Kidney damage with normal or decreased GFR 90 2 Kidney damage with mild decrease in GFR 60-89 3 Moderate decrease in GFR 30-59 4 Severe decrease in GFR 15-29 5 Kidney failure <15 (or dialysis) 32 Therapeutic target for the treatment of diabetes Mellitus patients is <7% HBA1C, and in selective patients <6.0%.Please refer to [place] [employer] Diabetic care guidelines for further information. 33 PT IS FASTING 34 Desirable <150 Borderline high 150-199 High 200-499 Very High >500 35 Desirable <200 Borderline high 200-239 High >239 36 Low <40 Desirable: 40-60 High: >60 37 Desirable: <100 mg/dL Near Optimal: 100-129 mg/dL Borderline High: 130-159 mg/dL High: 160-189 mg/dL Very High: >189 mg/dL 38 Because ethnic data is not always readily available, this report includes an eGFR for both -Americans and non- Americans. The National Kidney Disease Education Program (NKDEP) does not endorse the use of the MDRD equation for patients that are not between the ages of 18 and 70, are , have extremes of body size, muscle mass, or nutritional status, or are non- or non-. According to the National Kidney Foundation, irrespective of diagnosis, the stage of the disease is based on the level of kidney function: Stage Description GFR(mL/min/1.73 m(2)) 1 Kidney damage with normal or decreased GFR 90 2 Kidney damage with mild decrease in GFR 60-89 3 Moderate decrease in GFR 30-59 4 Severe decrease in GFR 15-29 5 Kidney failure <15 (or dialysis) 39 Therapeutic target for the treatment of diabetes Mellitus patients is <7% HBA1C, and in selective patients <6.0%.Please refer to [employer] Diabetic care guidelines for further information. 40 Because ethnic data is not always readily available, this report includes an eGFR for both -Americans and non- Americans. The National Kidney Disease Education Program (NKDEP) does not endorse the use of the MDRD equation for patients that are not between the ages of 18 and 70, are , have extremes of body size, muscle mass, or nutritional status, or are non- or non-. According to the National Kidney Foundation, irrespective of diagnosis, the stage of the disease is based on the level of kidney function: Stage Description GFR(mL/min/1.73 m(2)) 1 Kidney damage with normal or decreased GFR 90 2 Kidney damage with mild decrease in GFR 60-89 3 Moderate decrease in GFR 30-59 4 Severe decrease in GFR 15-29 5 Kidney failure <15 (or dialysis) 41 Because ethnic data is not always readily available, this report includes an eGFR for both -Americans and non- Americans. The National Kidney Disease Education Program (NKDEP) does not endorse the use of the MDRD equation for patients that are not between the ages of 18 and 70, are , have extremes of body size, muscle mass, or nutritional status, or are non- or non-. According to the National Kidney Foundation, irrespective of diagnosis, the stage of the disease is based on the level of kidney function: Stage Description GFR(mL/min/1.73 m(2)) 1 Kidney damage with normal or decreased GFR 90 2 Kidney damage with mild decrease in GFR 60-89 3 Moderate decrease in GFR 30-59 4 Severe decrease in GFR 15-29 5 Kidney failure <15 (or dialysis) 42 Serologic response to B. burgdorferi infection is not detected, but cannot rule out early infection during which low or undetectable antibody levels to B. burgdorferi may be present. If clinically indicated, a new serum specimen should be submitted in 7-14 days. Test Performed by: [facility] - [address] [address] [place]: Bladimir Ortiz III, M.D. 43 Desirable <150 Borderline high 150-199 High 200-499 Very High >500 44 Desirable <200 Borderline high 200-239 High >239 45 Low <40 Desirable: 40-60 High: >60 46 Desirable <100 Near Optimal 100-129 Borderline high 130-159 High 160-189 Very High >189 47 Because ethnic data is not always readily available, this report includes an eGFR for both -Americans and non- Americans. The National Kidney Disease Education Program (NKDEP) does not endorse the use of the MDRD equation for patients that are not between the ages of 18 and 70, are , have extremes of body size, muscle mass, or nutritional status, or are non- or non-. According to the National Kidney Foundation, irrespective of diagnosis, the stage of the disease is based on the level of kidney function: Stage Description GFR(mL/min/1.73 m(2)) 1 Kidney damage with normal or decreased GFR 90 2 Kidney damage with mild decrease in GFR 60-89 3 Moderate decrease in GFR 30-59 4 Severe decrease in GFR 15-29 5 Kidney failure <15 (or dialysis) 48 Therapeutic target for the treatment of diabetes Mellitus patients is <7% HBA1C, and in selective patients <6.0%.Please refer to [employer] Diabetic care guidelines for further information. 49 PT IS FASTING 50 PT IS FASTING 51 RUN DATE: 07/13/13 [facility] LAB LIVE PAGE 1 RUN TIME: [address] [place] [id number] Specimen Inquiry Name: AZUL MCALLISTER : [address]: Blaine Donato MD Acct: [id number] Unit: [id number] AGE: 48 Location: [facility] Re07/11/13 SEX: F Status: DEP ER SPEC: [id number] JOY: 07/11/13-[address] [facility] [address]: Blaine Donato MD REQ: [id number] RECD: 07/11/13 STATUS: MORGAN MORRIS DR: Darby Holt MD _ SOURCE: THROAT SPDESC: ORDERED: Throat Beta Str QUERIES: Medent Number [id number] Procedure Result Verified Site Throat Beta Strep Culture Final 07/13/13- 821 ML Negative For Group A Beta Streptococcus END OF REPORT * ML=Testing performed at Main Lab DEPARTMENT OF PATHOLOGY, [facility] [employer] [place], [place] [address] Jamir Cardenas M.D. Director [facility] Permit #[id number] RUN DATE: 01/31/13 [facility] LAB LIVE PAGE 1 RUN TIME: [address] [facility] [place], [place] [address] Specimen Inquiry Name: AZUL MCALLISTER : [address]: Darby Holt MD Acct: [id number] Unit: [id number] AGE: 48 Location: [facility] Re01/29/13 SEX: F Status: REG REF SPEC: [id number] JOY: 01/29/13-[address] [facility] [address]: Darby Holt MD REQ: [id number] RECD: 01/29/13 STATUS: COMP _ SOURCE: THROAT SPDESC: ORDERED: Throat Beta Str QUERIES: Medent Number [id number] Procedure Result Verified Site Throat Beta Strep Culture Final 01/31/13- 08 ML Negative For Group A Beta Streptococcus END OF REPORT * ML=Testing performed at Main Lab DEPARTMENT OF PATHOLOGY, [address] [place] [address] Jamir Cardenas M.D. Director [facility] Permit #[id number] 53 Therapeutic target for the treatment of diabetes Mellitus patients is <7% HBA1C, and in selective patients <6.0%.Please refer to [employer] Diabetic care guidelines for further information. 54 Because ethnic data is not always readily available, this report includes an eGFR for both -Americans and non- Americans. The National Kidney Disease Education Program (NKDEP) does not endorse the use of the MDRD equation for patients that are not between the ages of 18 and 70, are , have extremes of body size, muscle mass, or nutritional status, or are non- or non-. According to the National Kidney Foundation, irrespective of diagnosis, the stage of the disease is based on the level of kidney function: Stage Description GFR(mL/min/1.73 m(2)) 1 Kidney damage with normal or decreased GFR 90 2 Kidney damage with mild decrease in GFR 60-89 3 Moderate decrease in GFR 30-59 4 Severe decrease in GFR 15-29 5 Kidney failure <15 (or dialysis) 55 HDL Interpretation: Undesirable: High Risk: Less than 40 MG/DL Desirable: Low Risk: Greater than 60 MG/DL 56 LDL Interpretation: Low Risk Optimal Level: LDL Less than 100 MG/DL Near or Above Optimal: LDL 100-129 MG/DL Borderline High Risk: LDL 130-159 MG/DL High Risk: LDL 160-189 MG/DL Very High Risk: LDL Greater than 189 MG/DL 57 Because ethnic data is not always readily available, this report includes an eGFR for both -Americans and non- Americans. The National Kidney Disease Education Program (NKDEP) does not endorse the use of the MDRD equation for patients that are not between the ages of 18 and 70, are , have extremes of body size, muscle mass, or nutritional status, or are non- or non-. According to the National Kidney Foundation, irrespective of diagnosis, the stage of the disease is based on the level of kidney function: Stage Description GFR(mL/min/1.73 m(2)) 1 Kidney damage with normal or decreased GFR 90 2 Kidney damage with mild decrease in GFR 60-89 3 Moderate decrease in GFR 30-59 4 Severe decrease in GFR 15-29 5 Kidney failure <15 (or dialysis) 58 This test detects intact HCG only and is indicated for the early detection of . 59 The INR(International Normalized Ratio) was adopted by the World Health Organization (WHO) in 1983 as a standardized system of reporting PT (Prothrombin Time). The Centers for Disease Control (CDC) states that reporting of PT results in INR only is the preferred method. Recommended INR for Patients on Oral Anticoagulants Prophylaxis 2.0 - 3.0 Treatment of thrombosis 2.0 - 3.0 Prevention of embolism 2.0 - 3.0 Prevention of embolism from prosthetic heart valves 2.5 - 3.5 60 Effective 04/30/12, bilirubin confirmation by ictotest is discontinued. False-positive results for bilirubin may occur due to color interference from large amounts of blood in the urine, very concentrated urine, or drugs that discolor urine such as phenazopyridine(Pyridium). 61 Anion gap measurement may be of limited value in the presence of any alkalosis, especially in a combined acid base disorder. . 62 A metabolite of Naproxen, O-desmethylnaproxen, has been shown to interfere with the Jendrassik-Flaxton method for measuring total bilirubin. Samples from patients who have taken Naproxen have shown spurious elevation in total bilirubin levels. 63 Because ethnic data is not always readily available, this report includes an eGFR for both -Americans and non- Americans. The National Kidney Disease Education Program (NKDEP) does not endorse the use of the MDRD equation for patients that are not between the ages of 18 and 70, are , have extremes of body size, muscle mass, or nutritional status, or are non- or non-. According to the National Kidney Foundation, irrespective of diagnosis, the stage of the disease is based on the level of kidney function: Stage Description GFR(mL/min/1.73 m(2)) 1 Kidney damage with normal or decreased GFR 90 2 Kidney damage with mild decrease in GFR 60-89 3 Moderate decrease in GFR 30-59 4 Severe decrease in GFR 15-29 5 Kidney failure <15 (or dialysis) 64 CHOLESTEROL INTERPRETATION: Desirable: Less than 200 MG/DL Borderline-High Risk: 200-239 MG/DL High-Risk: 240 MG/DL and over 65 HDL INTERPRETATION: Undesirable: High Risk: Less than 40 MG/DL Desirable: Low Risk: Greater than 60 MG/DL 66 LDL INTERPRETATION: Low Risk Optimal Level: LDL Less than 100 MG/DL Near or Above Optimal: LDL 100-129 MG/DL Borderline High Risk: LDL 130-159 MG/DL High Risk: LDL 160-189 MG/DL Very High Risk: LDL Greater than 189 MG/DL 67 New Reference Range and Interpretation effective 03/06/2002 TnI (ng/ml) INTERPRETATION Less Than 0.06 ng/mL NOT SUPPORTIVE OF DIAGNOSIS OF NE 0.06 - 0.50 ng/ml INDETERMINATE: SUGGEST SERIAL STUDIES IF CLINICALLY INDICATED. Greater than 0.5 ng/mL CONSISTENT WITH DIAGNOSIS OF NE . 68 NORMAL RANGE: NONSMOKERS: LESS THAN 5% HEAVY SMOKERS: LESS THAN 10% LIFE THREATENING: OVER 15 % 69 Anion gap measurement may be of limited value in the presence of any alkalosis, especially in a combined acid base disorder. . 70 A metabolite of Naproxen, O-desmethylnaproxen, has been shown to interfere with the Jendrassik-Carlos method for measuring total bilirubin. Samples from patients who have taken Naproxen have shown spurious elevation in total bilirubin levels. 71 Because ethnic data is not always readily available, this report includes an eGFR for both -Americans and non- Americans. The National Kidney Disease Education Program (NKDEP) does not endorse the use of the MDRD equation for patients that are not between the ages of 18 and 70, are , have extremes of body size, muscle mass, or nutritional status, or are non- or non-. According to the National Kidney Foundation, irrespective of diagnosis, the stage of the disease is based on the level of kidney function: Stage Description GFR(mL/min/1.73 m(2)) 1 Kidney damage with normal or decreased GFR 90 2 Kidney damage with mild decrease in GFR 60-89 3 Moderate decrease in GFR 30-59 4 Severe decrease in GFR 15-29 5 Kidney failure <15 (or dialysis) 72 Please note: The following may produce a false positive D Dimer test: - Rheumatoid factor greater than 1400 IU/ml - Plasma hemoglobin greater than 0.5 gm/dl - Bilirubin greater than 18 mg/dl - Triglycerides greater than 1327 mg/dl - FDP greater than 10 ug/ml . 73 New Reference Range and Interpretation effective 03/06/2002 TnI (ng/ml) INTERPRETATION Less Than 0.06 ng/mL NOT SUPPORTIVE OF DIAGNOSIS OF NE 0.06 - 0.50 ng/ml INDETERMINATE: SUGGEST SERIAL STUDIES IF CLINICALLY INDICATED. Greater than 0.5 ng/mL CONSISTENT WITH DIAGNOSIS OF NE . 74 INTERPRETATION %CK-MB < 5% NOT SUPPORTIVE OF DIAGNOSIS OF NE 5 - <10% INDETERMINATE; SUGGEST SERIAL STUDIES IF CLINICALLY INDICATED 10% OR > CONSISTENT WITH DIAGNOSIS OF NE . 75 CHOLESTEROL INTERPRETATION: Desirable: Less than 200 MG/DL Borderline-High Risk: 200-239 MG/DL High-Risk: 240 MG/DL and over 76 HDL INTERPRETATION: Undesirable: High Risk: Less than 40 MG/DL Desirable: Low Risk: Greater than 60 MG/DL 77 LDL INTERPRETATION: Low Risk Optimal Level: LDL Less than 100 MG/DL Near or Above Optimal: LDL 100-129 MG/DL Borderline High Risk: LDL 130-159 MG/DL High Risk: LDL 160-189 MG/DL Very High Risk: LDL Greater than 189 MG/DL 78 Anion gap measurement may be of limited value in the presence of any alkalosis, especially in a combined acid base disorder. . 79 A metabolite of Naproxen, O-desmethylnaproxen, has been shown to interfere with the Jendrassik-Flaxton method for measuring total bilirubin. Samples from patients who have taken Naproxen have shown spurious elevation in total bilirubin levels. 80 Because ethnic data is not always readily available, this report includes an eGFR for both -Americans and non- Americans. The National Kidney Disease Education Program (NKDEP) does not endorse the use of the MDRD equation for patients that are not between the ages of 18 and 70, are , have extremes of body size, muscle mass, or nutritional status, or are non- or non-. According to the National Kidney Foundation, irrespective of diagnosis, the stage of the disease is based on the level of kidney function: Stage Description GFR(mL/min/1.73 m(2)) 1 Kidney damage with normal or decreased GFR 90 2 Kidney damage with mild decrease in GFR 60-89 3 Moderate decrease in GFR 30-59 4 Severe decrease in GFR 15-29 5 Kidney failure <15 (or dialysis) 81 Anion gap measurement may be of limited value in the presence of any alkalosis, especially in a combined acid base disorder. . 82 Note change in reference range as of 01/22/08. The change was based on recommendations from the [place] [employer]. 83 Please note change in reference range effective 07 . 84 A metabolite of Naproxen, O-desmethylnaproxen, has been shown to interfere with the Jendrassik-Flaxton method for measuring total bilirubin. Samples from patients who have taken Naproxen have shown spurious elevation in total bilirubin levels. 85 Because ethnic data is not always readily available, this report includes an eGFR for both -Americans and non- Americans. The National Kidney Disease Education Program (NKDEP) does not endorse the use of the MDRD equation for patients that are not between the ages of 18 and 70, are , have extremes of body size, muscle mass, or nutritional status, or are non- or non-. According to the National Kidney Foundation, irrespective of diagnosis, the stage of the disease is based on the level of kidney function: Stage Description GFR(mL/min/1.73 m(2)) 1 Kidney damage with normal or decreased GFR 90 2 Kidney damage with mild decrease in GFR 60-89 3 Moderate decrease in GFR 30-59 4 Severe decrease in GFR 15-29 5 Kidney failure <15 (or dialysis) 86 ICTOTEST IS A QUALITATIVE CONFIRMATORY TEST FOR BILIRUBIN. 87 CHOLESTEROL INTERPRETATION: Desirable: Less than 200 MG/DL Borderline-High Risk: 200-239 MG/DL High-Risk: 240 MG/DL and over 88 HDL INTERPRETATION: Undesirable: High Risk: Less than 40 MG/DL Desirable: Low Risk: Greater than 60 MG/DL 89 LDL INTERPRETATION: Low Risk Optimal Level: LDL Less than 100 MG/DL Near or Above Optimal: LDL 100-129 MG/DL Borderline High Risk: LDL 130-159 MG/DL High Risk: LDL 160-189 MG/DL Very High Risk: LDL Greater than 189 MG/DL 90 Anion gap measurement may be of limited value in the presence of any alkalosis, especially in a combined acid base disorder. . 91 Note change in reference range as of 01/22/08. The change was based on recommendations from the [place] [employer]. 92 Please note change in reference range effective 07 . 93 Because ethnic data is not always readily available, this report includes an eGFR for both -Americans and non- Americans. The National Kidney Disease Education Program (NKDEP) does not endorse the use of the MDRD equation for patients that are not between the ages of 18 and 70, are , have extremes of body size, muscle mass, or nutritional status, or are non- or non-. According to the National Kidney Foundation, irrespective of diagnosis, the stage of the disease is based on the level of kidney function: Stage Description GFR(mL/min/1.73 m(2)) 1 Kidney damage with normal or decreased GFR 90 2 Kidney damage with mild decrease in GFR 60-89 3 Moderate decrease in GFR 30-59 4 Severe decrease in GFR 15-29 5 Kidney failure <15 (or dialysis) Procedures Date Code Description Status 06/25/2018 26868 EKG Tracing & Interpretation Completed 10/01/2017 53718 ECHO Stress Test Incl Perf Contiuous ekg Monitoring Completed W/Phys Superv 08/07/2017 74903 EKG Tracing & Interpretation Completed 07/31/2017 [id number] Diabetic Retinal Eye Exam Completed 03/19/2017 [id number] Mammogram Completed 04/11/2016 [id number] Diabetic Retinal Eye Exam Completed 12/19/2015 [id number] Mammogram Completed 12/19/2015 [id number] Bone Mineral Density Test Completed 11/24/2015 89319 Stress ECHO Interpretation/Report Hospital Completed 11/24/2015 05281 Treadmill Interp/Report Only Completed 11/24/2015 74527 Stress Test Supervsn W/Out I/R Completed 03/30/2015 [id number] Diabetic Retinal Eye Exam Completed 01/26/2015 13647 ECHO Transthorasic Realtime 2D W Doppler & Color Flow Completed Hosp 01/04/2015 51706 EKG Tracing & Interpretation Completed 03/23/2014 [id number] Mammogram Completed 11/16/2013 53764 EKG Tracing & Interpretation Completed 10/02/2013 83348 ECHO Transthorasic Realtime 2D W Doppler & Color Flow Completed Hosp 02/25/2013 02774 Rad Exam; Elbow, Limited Completed 02/18/2013 02952 Rad Exam; Elbow, Limited Completed 02/12/2013 84558 Closed Treatment Radial Head Or Neck FX W/O Completed Manipulation 11/05/2012 33828 EKG Tracing & Interpretation Completed 10/30/2012 98840 Color Flow Doppler/Interp & Reprt Completed 10/30/2012 41352 Color Flow Doppler/Interp & Reprt Completed 10/30/2012 73972 ECHO Transthorasic Realtime 2D W Doppler & Color Flow Completed Hosp 10/30/2012 91870 ECHO Transthorasic Realtime 2D W Doppler & Color Flow Completed Hosp 10/30/2012 54504 Pulse Wave/Continuous-Interp.RPT Completed 10/30/2012 02820 Pulse Wave/Continuous-Interp.RPT Completed 10/07/2012 [id number] Mammogram Completed 06/12/2011 94043 Echocardiography, Transesophageal, Real Time W/Image Completed 2D W/W/O M-M 06/12/2011 34571 Pulse Wave/Continuous-Interp.RPT Completed 06/12/2011 83254 Color Flow Doppler/Interp & Reprt Completed 06/11/2011 67534 EKG Tracing & Interpretation Completed 04/10/2011 42444 Color Flow Doppler/Interp & Reprt Completed 04/10/2011 16237 Pulse Wave/Continuous-Interp.RPT Completed 04/10/2011 70816 ECHO Transthorasic Realtime 2D W Doppler & Color Flow Completed Hosp 06/06/2010 [id number] Mammogram Completed Encounters Type Date Location Provider Dx Diagnosis Office Visit 05/01/2018 [facility] Internal [place] E11.65 Type 2 diabetes 7:40a Elaine Holt M.D. mellitus with [place] hyperglycemia I10 Essential (primary) hypertension Z12.11 Encounter for screening for malignant neoplasm of colon Office Visit 01/28/2018 [facility] Internal [place] E11.65 Type 2 diabetes 8:40a Elaine Holt M.D. mellitus with [place] hyperglycemia R19.7 Diarrhea, unspecified I10 Essential (primary) hypertension E11.65 Type 2 diabetes mellitus with hyperglycemia Office Visit 11/22/2017 [facility] Internal [place] E11.65 Type 2 diabetes 8:40a Elaine Holt M.D. mellitus with [place] hyperglycemia Office Visit 10/22/2017 [facility] Dermatology [place], L23.9 Allergic contact 4:40p dermatitis, unspecified cause Office Visit 10/22/2017 [facility] [place] R21 Rash and other 2:40p Elaine Holt M.D. nonspecific skin [place] eruption E11.9 Type 2 diabetes mellitus without complications F32.89 Other specified depressive episodes Z12.11 Encounter for screening for malignant neoplasm of colon Office Visit 08/07/2017 9:30a [facility] Susie SJaxon E11.9 Type 2 diabetes Foster, N.P. mellitus without complications I10 Essential (primary) hypertension R07.9 Chest pain, unspecified Office Visit 03/11/2017 [facility] [place] B02.9 Zoster without 1:40p Elaine Holt M.D. complications [place] Office Visit 10/19/2016 [facility] [place] Z00.00 Encntr for general 11:20a Elaine Holt M.D. adult medical exam [place] w/o abnormal findings E11.9 Type 2 diabetes mellitus without complications I10 Essential (primary) hypertension Z12.31 Encntr screen mammogram for malignant neoplasm of breast Z12.11 Encounter for screening for malignant neoplasm of colon Office Visit 10/18/2016 10:00a Orthopedic Jessica Beth79.671 Pain in Services Of Latisah Stark right foot Office Visit 10/01/2016 2:40p [facility] [place] M79.671 Pain in Elaine Holt M.D. right foot [place] E11.9 Type 2 diabetes mellitus without complications Office Visit 07/31/2016 4:20p [facility] Eliza Gaxiola, J20.9 Acute bronchitis, Medicine - N.P. unspecified [place] Office Visit 06/08/2016 4:00p [facility] [place] E11.9 Type 2 diabetes Elaine Holt M.D. mellitus without [place] complications I10 Essential (primary) hypertension E78.2 Mixed hyperlipidemia Office Visit 12/19/2015 2:00p [facility] Dylan Dewitt, L23.7 Allergic contact Medicine - [place] MANAGER PUBLIC dermatitis due to Rd plants, except food L23.9 Allergic contact dermatitis, unspecified cause Office Visit 12/01/2015 [facility] [place] R68.84 Jaw pain 9:20a Elaine Holt M.D. [place] Office Visit 11/24/2015 [facility] R07.9 Chest pain, 9:40a Assoc,nikolay Gray, MANAGER PUBLIC unspecified Hospitalists E11.9 Type 2 diabetes mellitus without complications E87.2 Acidosis Office Visit 11/14/2015 4:00p [facility] [place] E11.9 Type 2 diabetes Elaine Holt M.D. mellitus without [place] complications E78.2 Mixed hyperlipidemia I10 Essential (primary) hypertension Office Visit 08/04/2015 3:20p [facility] [place] J06.9 Acute upper Elaine Holt M.D. respiratory [place] infection, unspecified Office Visit 06/23/2015 11:40a [facility] [place] R51 Headache Elaine Holt M.D. [place] E11.9 Type 2 diabetes mellitus without complications Office 06/21/2015 Neurohospitalist Anderson Carter G43.909 Migraine, unsp, Visit 3:40p [facility] [place] Cristina not intractable, without status migrainosus A08.4 Viral intestinal infection, unspecified Office Visit 06/21/2015 10:42a [facility] Ludy A08.4 Viral intestinal Assoc,nikolay Guevara M.D. infection, Hospitalists unspecified E11.9 Type 2 diabetes mellitus without complications I10 Essential (primary) hypertension Office Visit 06/20/2015 10:41a [facility] Chari Boston A08.4 Viral intestinal Assoc,nikolay Guevara M.D. infection, Hospitalists unspecified E11.9 Type 2 diabetes mellitus without complications I10 Essential (primary) hypertension Office Visit 01/31/2015 4:00p [facility] [place] 250.00 Diabetes Elaine Holt M.D. Mellitus W/O [place] Compl Type II Or Unspec Controlled V03.82 Streptococcus Pneumoniae Vaccination Spec Other Office Visit 01/04/2015 Julian Morley S. 272.2 Hyperlipidemia 4:20p Cardiology [place] Abernathy Mixed 401.1 Hypertension Benign 745.5 Atrial Septal Defect Ostium Secundum Type Office Visit 12/29/2014 9:40a [facility] [place] 250.00 Diabetes Elaine Holt M.D. Mellitus W/O [place] Compl Type II Or Unspec Controlled 272.2 Hyperlipidemia Mixed Office Visit 02/16/2014 2:00p [facility] [place] 780.79 Malaise And Elaine Holt M.D. Fatigue Other [place] Office Visit 12/03/2013 3:00p [facility] [place] V70.0 Examination Elaine Holt M.D. [facility] Routine AT Health Care Facility V76.10 Screening For Malignant Neoplasm Breast 401.1 Hypertension Benign 790.21 Impaired Fasting Glucose 790.4 Transaminase Or Lactic Acid Dehydrogenase Elevation Nonspec Office Visit 11/16/2013 Julian Morley S. 401.1 Hypertension 4:00p Cardiology [place] Abernathy Benign 745.5 Atrial Septal Defect Ostium Secundum Type 424.0 Mitral Valve Disorder Office Visit 11/12/2013 [facility] Meggan Gonzales, 079.89 Viral Infection 10:50a Elaine Marks M.D. Spec Other [place] Office Visit 11/10/2013 [facility] Eliza Gaxiola, 787.91 Diarrhea 10:00a Medicine - N.P. [place] Office Visit 01/29/2013 [facility] [place] 462 Pharyngitis Acute 1:00p Elaine Holt M.D. [place] Office Visit 11/18/2012 [facility] Nurse Visit cc 401.1 Hypertension 4:00p Cardiology Benign Office Visit 11/05/2012 [facility] Qutaybeh S. 745.5 Atrial Septal 1:20p Cardiology [place] Abernathy Defect Ostium Secundum Type 424.0 Mitral Valve Disorder 401.1 Hypertension Benign Office Visit 09/23/2012 3:00p [facility] [place] V70.0 Examination Elaine Holt M.D. [facility] Routine AT Health Care Facility V76.10 Screening For Malignant Neoplasm Breast 745.5 Atrial Septal Defect Ostium Secundum Type 401.1 Hypertension Benign 780.52 Insomnia Unspecified 238.2 Neoplasm Uncertain Skin Office Visit 05/15/2012 4:00p [facility] [place] Jonathon, 786.50 Pain Chest Medicine - [place] Unspec [place] 275.42 Hypercalcemia 311 Depressive Disorder Not Elsewhere Spec Office Visit 07/23/2011 10:00a [facility] Zohrataybeh S. 745.5 Atrial Septal [place] Abernathy Defect Ostium Secundum Type 424.0 Mitral Valve Disorder 401.1 Hypertension Benign Office Visit 06/19/2011 1:00p [facility] [place] 780.52 Insomnia Elaine Holt M.D. Unspecified [place] 786.50 Pain Chest Unspec Office Visit 06/12/2011 8:00a [facility] Qutaybeh S. 745.5 Atrial Septal [place] Abernathy Defect Ostium Secundum Type 424.1 Aortic Valve Disorder 424.2 Tricuspid Valve Disorder Spec as Nonrheumatic Office Visit 06/11/2011 9:20a [facility] Qutaybeh S. 414.19 Aneurysm Heart [place] Abernathy Other 794.31 Electrocardiogram (ECG) (EKG) Abnormal 401.1 Hypertension Benign Office Visit 05/25/2011 3:00p DO Not Use Eliza Varn, 461.9 Sinusitis Acute [facility] N.P. Unspec 380.4 Impacted Cerumen Office Visit 05/10/2011 DO Not Use [place] 782.0 Skin Sensation [facility]a [facility] Disturbance 311 Depressive Disorder Not Elsewhere Spec 414.19 Aneurysm Heart Other Office Visit 04/09/2011 DO Not Use [place] 782.0 Skin Sensation 11:40a Anson Holt M.D. Disturbance Office Visit 03/29/2011 DO Not Use [place] 782.0 Skin Sensation 2:00p Anson Holt M.D. Disturbance 311 Depressive Disorder Not Elsewhere Spec 401.1 Hypertension Benign Office Visit 03/13/2011 DO Not Use [place] 782.0 Skin Sensation 1:20p Anson Holt M.D. Disturbance 311 Depressive Disorder Not Elsewhere Spec Office Visit 03/01/2011 DO Not Use [place] 782.0 Skin Sensation 9:00a Anson Holt M.D. Disturbance 311 Depressive Disorder Not Elsewhere Spec v04.81 Need For Prophylactic Vaccination & Inoculation/Influenza Office Visit 05/15/2010 DO Not Use [place] 466.0 Bronchitis Acute 9:15a Anson Holt M.D. Office Visit 05/11/2010 DO Not Use [place] 465.9 URI Upper 1:15p Anson Holt M.D. Respiratory Infections Acute Unspec Sites 401.1 Hypertension Benign Office Visit 07/19/2009 8:40a DO Not Use [employer] [place] 401.1 Hypertension AT Deanne Holt M.D. Benign 790.21 Impaired Fasting Glucose 465.9 URI Upper Respiratory Infections Acute Unspec Sites Office Visit 03/24/2009 3:00p DO Not Use [employer] AT [place] Holt, 786.2 Cough Deanne Stark 401.1 Hypertension Benign Plan of Treatment Future Appointment(s):07/25/2018 3:00 pm - [place] ECHO Schedule at [facility]08/08/2018 4:00 pm - [place] Holt M.D. at [facility] Internal Medicine [facility]11/21/2018 4:20 pm - [place] Holt M.D. at [facility] Internal Medicine [facility]06/25/2018 - Peyman Abernathy M.D.I10 Essential ( primary) qztsrbmsocysT04.5 Hyperlipidemia, tfdnjdnusotC77.1 Atrial septal defectNew Orders:Echocardiogram, Scheduled: 07/25/18
[2018-07-17 09:55] LABS: ABS Basophils 0.1 10^3/ul (0-0.2); ABS Eosinophils 0.2 10^3/ul (0-0.6); ABS Lymphocytes 2.1 10^3/ul (1.0-4.8); ABS Monocytes 0.4 10^3/ul (0-0.8); ABS Neutrophils 4.1 10^3/ul (1.5-7.7); ABS Nucleated RBC 0 10^3/ul; Eosinophil % 2.9 %; Hematocrit 46 % (35-47); Lymphocyte % 30.4 %; Mean Corpuscular HGB Conc 35 g/dl (31-36); Mean Corpuscular Hemoglobin 29 pg (27-31); Mean Corpuscular Volume 83 fL (80-97); Mean Platelet Volume 7.4 fL (7.4-10.4); Nucleated Red Blood Cells % 0.4; Platelet Count 296 10^3/ul (150-450); Red Cell Distribution Width 14 % (10.5-15); White Blood Count 6.9 10^3/ul (3.5-10.8)
[2018-07-17 10:13] LABS: Influenza A Molecular NEGATIVE (Negative); Influenza B Molecular NEGATIVE (Negative)
[2018-07-17 10:15] LABS: Albumin 4.6 g/dL (3.2-5.2); Albumin/Globulin Ratio 1.4 (1-3); BUN/Creatinine Ratio 21.2 (8-20); C Reactive Protein 9.87 mg/L (<8.01); Calcium 10.2 mg/dL (8.6-10.3); EGFR African American 149.8 (>60); EGFR Non-African American 123.8 (>60); Globulin 3.2 g/dL (2-4); Potassium 3.5 mmol/L (3.5-5.0); Total Bilirubin 0.7 mg/dL (0.2-1.0); Total Protein 7.8 g/dL (6.4-8.9)
[2018-07-17 10:42] VITALS: BP 122/94
--- NOTE | 2018-07-17 12:28 | ED ---
Influenza-Like Illness - HPI Summary HPI Summary: Patient is a 53-year-old otherwise healthy female presenting to the ED with diffuse body aches, worse to the joints, fatigue and mild nausea. Symptoms have been present 3 days. She has been out of work for 2 days. She does endorse having the flu shot this year. She denies emesis. Denies any constipation or diarrhea. She denies any change in medications. Denies subjective fevers, sweats, chills, cough or congestion. - History of Current Complaint Chief Complaint: EDFluSymptoms Time Seen by Provider: 07/17/18 09:30 Hx Obtained From: Patient Onset/Duration: Sudden Onset Severity: Mild Associated Signs & Symptoms: T Max, F/C, Myalgia - Allergy/Home Medications Allergies/Adverse Reactions: Allergies Allergy/AdvReac Type Severity Reaction Status Date / Time diphenhydramine Allergy Severe "MAKES ME Verified 07/17/18 09:29 [From Benadryl] FEEL LIKE I'M COMING OUT OF MY SKIN" cefaclor Allergy Rash Verified 07/17/18 09:29 codeine Allergy Itching Verified 07/17/18 09:29 Penicillins Allergy Rash Verified 07/17/18 09:29 PMH/Surg Hx/FS Hx/Imm Hx Previously Healthy: Yes Endocrine/Hematology History: Reports: Hx Diabetes - DM2 Denies: Hx Anticoagulant Therapy, Hx Systemic Lupus Erythematosus, Hx Thyroid Disease Cardiovascular History: Reports: Hx Hypertension, Other Cardiovascular Problems/ Disorders - patent foramen ovale on aspirin therapy Denies: Hx Congestive Heart Failure, Hx Pacemaker/ICD Respiratory History: Denies: Hx Asthma, Hx Chronic Obstructive Pulmonary Disease (COPD) GI History: Denies: Hx Ulcer History: Denies: Hx Dialysis, Hx Renal Disease Musculoskeletal History: Reports: Hx Scoliosis - A CHILD Denies: Hx Rheumatoid Arthritis Sensory History: Reports: Hx Contacts or Glasses Opthamlomology History: Reports: Hx Contacts or Glasses Neurological History: Reports: Hx Migraine Psychiatric History: Reports: Hx Depression - Cancer History Hx Chemotherapy: No Hx Radiation Therapy: No - Surgical History Surgery Procedure, Year, and Place: Hysterectomy, appendectomy, tonsillectomy & Adenoidectomy, Hx Anesthesia Reactions: No - Immunization History Date of Tetanus Vaccine: 06/02/11 Date of Influenza Vaccine: 03/17 Hx Pertussis Vaccination: No Immunizations Up to Date: Yes Infectious Disease History: Yes Infectious Disease History: Reports: Hx Shingles Denies: Hx Clostridium Difficile, Hx Hepatitis, Hx Human Immunodeficiency Virus (HIV), Hx of Known/Suspected MRSA, Hx Tuberculosis, Traveled Outside the [place] in Last 30 Days - Family History Known Family History: Positive: Diabetes Negative: Cardiac Disease, Hypertension - Social History Alcohol Use: None Alcohol Amount: wine or beer monthly Hx Substance Use: No Substance Use Type: Reports: None Hx Tobacco Use: No Smoking Status (MU): Never Smoked Tobacco Have You Smoked in the Last Year: No Review of Systems Positive: Chills, Fatigue. Negative: Fever, Skin Diaphoresis Negative: Blurred Vision, Diplopia Negative: Palpitations Negative: Shortness Of Breath, Cough Positive: Nausea. Negative: Abdominal Pain, Vomiting, Diarrhea Genitourinary: Negative Positive: no symptoms reported, see HPI Positive: Myalgia - diffuse Negative: Rash, Bruising Positive: Weakness All Other Systems Reviewed And Are Negative: Yes Physical Exam Triage Information Reviewed: Yes Vital Signs On Initial Exam: Initial Vitals Temp Pulse Resp BP Pulse Ox 97.1 F 91 18 135/102 96 07/17/18 09:27 07/17/18 09:27 07/17/18 09:27 07/17/18 09:27 07/17/18 09:27 Vital Signs Reviewed: Yes Appearance: Positive: Well-Appearing, Well-Nourished Skin: Positive: Warm, Skin Color Reflects Adequate Perfusion Head/Face: Positive: Normal Head/Face Inspection Neck: Positive: Supple, No Lymphadenopathy Respiratory/Lung Sounds: Positive: Clear to Auscultation, Breath Sounds Present Cardiovascular: Positive: RRR, Pulses are Symmetrical in both Upper and Lower Extremities Musculoskeletal: Positive: Strength/ROM Intact Neurological: Positive: Speech Normal Psychiatric: Positive: Affect/Mood Appropriate AVPU Assessment: Alert Diagnostics - Vital Signs Vital Signs Temp Pulse Resp BP Pulse Ox 07/17/18 10:40 97.9 F 87 18 122/94 95 07/17/18 09:27 97.1 F 91 18 135/102 96 - Laboratory Lab Results: Lab Results 07/17/18 07/17/18 07/17/18 Range/Units 09:47 09:47 09:47 WBC 6.9 (3.5-10.8) 10^3/ul RBC 5.50 H (4.00-5.40) 10^6/ul Hgb 16.0 (12.0-16.0) g/dl Hct 46 (35-47) % MCV 83 (80-97) fL MCH 29 (27-31) pg MCHC 35 (31-36) g/dl RDW 14 (10.5-15) % Plt Count 296 (150-450) 10^3/ul MPV 7.4 (7.4-10.4) fL Neut % (Auto) 59.0 % Lymph % (Auto) 30.4 % [place] % (Auto) 6.4 % Eos % (Auto) 2.9 % Baso % (Auto) 1.3 % Absolute Neuts (auto) 4.1 (1.5-7.7) 10^3/ul Absolute Lymphs (auto) 2.1 (1.0-4.8) 10^3/ul Absolute Monos (auto) 0.4 (0-0.8) 10^3/ul Absolute Eos (auto) 0.2 (0-0.6) 10^3/ul Absolute Basos (auto) 0.1 (0-0.2) 10^3/ul Absolute Nucleated RBC 0 10^3/ul Nucleated RBC % 0.4 Sodium 138 (135-145) mmol/L Potassium 3.5 (3.5-5.0) mmol/L Chloride 103 (101-111) mmol/L Carbon Dioxide 25 (22-32) mmol/L Anion Gap 10 (2-11) mmol/L BUN 11 (6-24) mg/dL Creatinine 0.52 (0.51-0.95) mg/dL Est GFR ( Amer) 149.8 (>60) Est GFR (Non-Af Amer) 123.8 (>60) BUN/Creatinine Ratio 21.2 H (8-20) Glucose 120 H (70-100) mg/dL Lactic Acid 0.8 (0.5-2.0) mmol/L Calcium 10.2 (8.6-10.3) mg/dL Total Bilirubin 0.70 (0.2-1.0) mg/dL AST 22 (13-39) U/L ALT 24 (7-52) U/L Alkaline Phosphatase 111 H (34-104) U/L C-Reactive Protein 9.87 H (<8.01) mg/L Total Protein 7.8 (6.4-8.9) g/dL Albumin 4.6 (3.2-5.2) g/dL Globulin 3.2 (2-4) g/dL Albumin/Globulin Ratio 1.4 (1-3) Influenza A (Rapid) (Negative) Influenza B (Rapid) (Negative) 07/17/18 Range/Units 10:01 WBC (3.5-10.8) 10^3/ul RBC (4.00-5.40) 10^6/ul Hgb (12.0-16.0) g/dl Hct (35-47) % MCV (80-97) fL MCH (27-31) pg MCHC (31-36) g/dl RDW (10.5-15) % Plt Count (150-450) 10^3/ul MPV (7.4-10.4) fL Neut % (Auto) % Lymph % (Auto) % [place] % (Auto) % Eos % (Auto) % Baso % (Auto) % Absolute Neuts (auto) (1.5-7.7) 10^3/ul Absolute Lymphs (auto) (1.0-4.8) 10^3/ul Absolute Monos (auto) (0-0.8) 10^3/ul Absolute Eos (auto) (0-0.6) 10^3/ul Absolute Basos (auto) (0-0.2) 10^3/ul Absolute Nucleated RBC 10^3/ul Nucleated RBC % Sodium (135-145) mmol/L Potassium (3.5-5.0) mmol/L Chloride (101-111) mmol/L Carbon Dioxide (22-32) mmol/L Anion Gap (2-11) mmol/L BUN (6-24) mg/dL Creatinine (0.51-0.95) mg/dL Est GFR ( Amer) (>60) Est GFR (Non-Af Amer) (>60) BUN/Creatinine Ratio (8-20) Glucose (70-100) mg/dL Lactic Acid (0.5-2.0) mmol/L Calcium (8.6-10.3) mg/dL Total Bilirubin (0.2-1.0) mg/dL AST (13-39) U/L ALT (7-52) U/L Alkaline Phosphatase (34-104) U/L C-Reactive Protein (<8.01) mg/L Total Protein (6.4-8.9) g/dL Albumin (3.2-5.2) g/dL Globulin (2-4) g/dL Albumin/Globulin Ratio (1-3) Influenza A (Rapid) Negative (Negative) Influenza B (Rapid) Negative (Negative) Result Diagrams: 07/17/18 09:47 07/17/18 09:47 Lab Statement: Any lab studies that have been ordered have been reviewed, and results considered in the medical decision making process. Flu Symptom Course/Dx - Course Course Of Treatment: Patient evaluated for flu like symptoms. Flu swab negative. Labs obtained are all WNL. This is likely a viral illness. She was given Zofran in the ED with some relief. I have offered her an out of work no, however she declines this. She will be discharged home with a viral illness/ syndrome. She should rest, drink plenty of fluids. Vital signs were stable in the ED and she remained afebrile. - Diagnoses Differential Diagnosis/HQI/PQRI: Positive: Bronchitis, Influenza, Upper Respiratory Infection Provider Diagnoses: Viral illness Discharge - Sign-Out/Discharge Documenting (check all that apply): Patient Departure Patient Received Moderate/Deep Sedation with Procedure: No - Discharge Plan Condition: Stable Disposition: HOME Patient Education Materials: Viral Syndrome (ED) Referrals: Darby Holt MD [Primary Care Provider] - Additional Instructions: Tylenol and ibuprofen as needed for body aches Rest Drink plenty of fluids today - Billing Disposition and Condition Condition: STABLE Disposition: Home
== END 2018-07-17 10:40 | disposition home or self-care (01) ==
LOC: ED 09:20
DX: B34.9 Viral infection, unspecified (principal); E11.9 Type 2 diabetes mellitus without complications; Z88.5 Allergy status to narcotic agent; Z88.0 Allergy status to penicillin; F32.9 Major depressive disorder, single episode, unspecified; I10 Essential (primary) hypertension; Q21.1 Atrial septal defect; Z79.82 Long term (current) use of aspirin
CPT/HCPCS: 36415; 80053; 83605; 85025; 86140; 99282; A9270-GY

== ENCOUNTER 2019-01-30 20:53 | Emergency (ER) | payer BC ==
--- OUTSIDE RECORDS SUMMARY | 2019-01-30 21:02 | XMS REPORT | Continuity of Care Document ---
:1965 External Reference #:[id number] Author Name Michael Bennett MD Address [address] [place] [address] Care Team Providers Name Role Phone Darby Holt M.D. Care Team Information Mgmt Analyst [phone] Problems Active Problems Provider Date Essential hypertension Onset: 12/06/2009 Impacted cerumen Michael Bennett MD Onset: 07/26/2014 Acute otitis externa Michael Bennett MD Onset: 07/26/2014 Social History Type Date Description Comments Sex Unknown Tobacco Use Start: Unknown Never Smoked Cigarettes Tobacco Use Start: Unknown Never Smoked Cigars Tobacco Use Start: Unknown Never Smoked A Pipe Smokeless Tobacco Never Used Smokeless Tobacco ETOH Use Currently occasionally consumes alcohol Tobacco Use Start: Unknown Patient has never smoked Allergies, Adverse Reactions, Alerts Active Allergies Reaction Severity Comments Date Penicillin 12/06/2009 Ceclor 12/06/2009 Codeine 12/06/2009 Medications Active Medications SIG Qnty Indications Ordering Provider Date Vitamin C Unknown Multi-Vitamins Unknown Calcium Unknown Aspirin 81 MG Unknown Metformin HCL 1 by mouth twice Darby Holt 500mg a day M.D. Tablets Immunizations CPT Code Status Date Vaccine Lot # [id number] Given 03/17/2014 Influenza Virus Vaccine, 3 Years Of Age And Above, Intramuscular Vital Signs Date Vital Result Comment 01/08/2019 8:35am Weight 175.00 lb Weight 79.380 kg Height 68 inches 5'8" Height in cm's 172.7 cm BMI (Body Mass Index) 26.6 kg/m2 09/08/2018 8:41am Weight 175.00 lb Weight 79.380 kg Height 68 inches 5'8" Height in cm's 172.7 cm BMI (Body Mass Index) 26.6 kg/m2 Results Description No Information Available Procedures Date Code Description Status 01/08/2019 68783 Removal Wax Impaction Completed 09/08/2018 06986 Removal Wax Impaction Completed Medical Devices Description No Information Available Encounters Type Date Location Provider Dx Diagnosis Office Visit 01/08/2019 [facility] Michael Bennett H61.23 Impacted cerumen, 8:30a 06/03/07 bilateral H60.543 Acute eczematoid otitis externa, bilateral Assessments Date Code Description Provider 01/08/2019 H61.23 Impacted cerumen, bilateral Michael Bennett MD 01/08/2019 H60.543 Acute eczematoid otitis externa, bilateral Michael Bennett MD 09/08/2018 H61.23 Impacted cerumen, bilateral Michael Bennett MD Plan of Treatment Future Appointment(s):04/09/2019 8:30 am - Michael Bennett MD at [facility] - Michael Bennett MDH61.23 Impacted cerumen, bilateralComments: The patient's cerumen impaction was cleaned without difficulty. she was advised to use the topicalmometasone ointment more frequently.H60.543 Acute eczematoid otitis externa, bilateral Functional Status Description No Information Available Mental Status Description No Information Available Referrals Description No Information Available
[2019-01-30 21:08] VITALS: BP 129/85
[2019-01-30] MEDS ORDERED: Acyclovir* 200 MG CAP PO ONE (21:31)
--- NOTE | 2019-01-30 21:33 | UC ---
Skin Complaint HPI - HPI Summary HPI Summary: 54 yo female with pruritis and burning pain left neck x 3 days now with rash pain similar to what she has experienced with shingles before - History of Current Complaint Chief Complaint: UCGeneralIllness Time Seen by Provider: 01/30/19 21:13 Stated Complaint: POSS SHINGLES, FEVER NAUSEA Hx Obtained From: Patient Onset/Duration: Gradual Onset, Lasting Days Timing: Constant Onset Severity: Mild Current Severity: Mild Pain Intensity: 4 Pain Scale Used: 0-10 Numeric Location: Discrete Character: Pruritus, Raised, Painful Aggravating Factor(s): Nothing, Touch Alleviating Factor(s): Nothing Associated Signs & Symptoms: Positive: Rash Similar Episode/Dx as: shingles - Allergy/Home Medications Allergies/Adverse Reactions: Allergies Allergy/AdvReac Type Severity Reaction Status Date / Time diphenhydramine Allergy Severe "MAKES ME Verified 01/30/19 21:09 [From Benadryl] FEEL LIKE I'M COMING OUT OF MY SKIN" cefaclor Allergy Rash Verified 01/30/19 21:09 codeine Allergy Itching Verified 01/30/19 21:09 Penicillins Allergy Rash Verified 01/30/19 21:09 Home Medications: Home Medications Dulaglutide [Trulicity] 1.5 mg SQ WEEKLY 01/30/19 [History Confirmed 01/30/19] PMH/Surg Hx/FS Hx/Imm Hx Previously Healthy: Yes Other History Of: Negative For: Anticoagulant Therapy - Surgical History Surgical History: Yes Surgery Procedure, Year, and Place: Hysterectomy, appendectomy, tonsillectomy & Adenoidectomy, - Family History Known Family History: Positive: Diabetes Negative: Cardiac Disease, Hypertension - Social History Alcohol Use: Rare Alcohol Amount: wine or beer monthly Substance Use Type: None Smoking Status (MU): Never Smoked Tobacco Have You Smoked in the Last Year: No - Immunization History Most Recent Influenza Vaccination: 2014 Most Recent Tetanus Shot: Jun 02 2011 Most Recent Pneumonia Vaccination: Jan 2015 Review of Systems All Other Systems Reviewed And Are Negative: Yes Constitutional: Positive: Negative Skin: Positive: Rash Eyes: Positive: Negative ENT: Positive: Negative Respiratory: Positive: Negative Cardiovascular: Positive: Negative Gastrointestinal: Positive: Negative Genitourinary: Positive: Negative Motor: Positive: Negative Neurovascular: Positive: Negative Musculoskeletal: Positive: Negative Neurological: Positive: Negative Psychological: Positive: Negative Physical Exam Triage Information Reviewed: Yes Appearance: Well-Appearing, No Pain Distress, Well-Nourished Vital Signs: Initial Vital Signs Temp 97.9 F 01/30/19 21:03 Pulse 105 01/30/19 21:03 Resp 18 01/30/19 21:03 BP 129/85 01/30/19 21:03 Pulse Ox 97 01/30/19 21:03 Vital Signs Reviewed: Yes Eyes: Positive: Conjunctiva Clear ENT: Positive: Hearing grossly normal. Negative: Nasal congestion, Nasal drainage, Trismus, Muffled voice, Hoarse voice Neck: Positive: Supple, Nontender, No Lymphadenopathy Respiratory: Positive: Lungs clear, Normal breath sounds, No respiratory distress Cardiovascular: Positive: RRR, No Murmur Musculoskeletal: Positive: ROM Intact, No Edema Neurological: Positive: Alert Psychological Exam: Normal Skin Exam: Other - 4-5 vesicle left neck Course/Dx - Diagnoses Provider Diagnosis: Shingles Discharge ED - Sign-Out/Discharge Documenting (check all that apply): Patient Departure All imaging exams completed and their final reports reviewed: No Studies - Discharge Plan Condition: Stable Disposition: HOME Prescriptions: ValACYclovir (*) [Valtrex 1 GM(*)] 1 gm PO TID #21 tab Patient Education Materials: Shingles (ED) Referrals: Darby Holt MD [Primary Care Provider] - 1 Week Additional Instructions: recheck for eye pain or light sensitivity - Billing Disposition and Condition Condition: STABLE Disposition: Home
== END 2019-01-30 21:53 | disposition home or self-care (01) ==
LOC: UCEAST 20:53
DX: B02.9 Zoster without complications (principal); Z88.5 Allergy status to narcotic agent; Z88.0 Allergy status to penicillin
CPT/HCPCS: 99212; A9270-GY; G0463

== ENCOUNTER 2019-02-10 13:32 | Emergency (ER) | payer BC ==
[2019-02-10 14:37] LABS: Urine Bacteria Absent (Absent); Urine Red Blood Cell 3+(>10/hpf) (Absent); Urine White Blood Cell Absent (Absent)
[2019-02-10 14:41] LABS: Urine Appearance Cloudy; Urine Color Red; Urine Specific Gravity 1.028 (1.010-1.030)
[2019-02-10] MEDS ORDERED: Ketorolac INJ* 30 MG/ML 1 ML VIAL IV ONE (15:10)
[2019-02-10 15:11] LABS: ABS Basophils 0.1 10^3/ul (0-0.2); ABS Eosinophils 0.1 10^3/ul (0-0.6); ABS Lymphocytes 2.7 10^3/ul (1.0-4.8); ABS Monocytes 0.4 10^3/ul (0-0.8); ABS Neutrophils 3.5 10^3/ul (1.5-7.7); Hematocrit 40 % (35-47); Hemoglobin 14.1 g/dL (12.0-16.0); Lymphocyte % 39.8 %; Mean Corpuscular HGB Conc 35 g/dL (31-36); Mean Corpuscular Hemoglobin 30 pg (27-31); Mean Corpuscular Volume 84 fL (80-97); Mean Platelet Volume 7.2 fL (7.4-10.4); Nucleated Red Blood Cells % 0.1; Platelet Count 278 10^3/uL (150-450); Red Blood Count 4.75 10^6 /uL (3.70-4.87); Red Cell Distribution Width 14 % (10-15); White Blood Count 6.9 10^3/uL (3.5-10.8)
[2019-02-10] MEDS ORDERED: NS 0.9% 1000 ML** 1,000 ML IV ONE (15:14)
--- NOTE | 2019-02-10 15:19 | ED ---
GI/ HPI - HPI Summary HPI Summary: This patient is a 54 year old F presenting to [facility] with a chief complaint of hematuria since 1030 today. Pt also reporting left flank plain. She never had these symptoms before. The patient rates the pain 6/10 in severity, achy located in the left flank. Symptoms associated with nausea Pt denies hx and FHx of kidney stones. Pt has type 2 diabetes. Her mother had bladder cancer. - History of Current Complaint Chief Complaint: EDUrogenitalProblems Time Seen by Provider: 02/10/19 14:52 Stated Complaint: BLOOD IN URINE PER PT Hx Obtained From: Patient Onset/Duration: Started Hours Ago - 0 today, Still Present, Worse Since - 1029 today Timing: Lasting Hours - since 1030 today Severity: Moderate Current Severity: Moderate Pain Intensity: 6 Location of Pain: Flank - left Associated Signs and Symptoms: Positive: Nausea, Hematuria, Other: - positive - left flank pain Aggravating Factor(s): Nothing Alleviating Factor(s): Nothing - Additional Pertinent History Primary Care Physician: JHOANA - Allergy/Home Medications Allergies/Adverse Reactions: Allergies Allergy/AdvReac Type Severity Reaction Status Date / Time diphenhydramine Allergy Severe "MAKES ME Verified 01/30/19 21:09 [From Benadryl] FEEL LIKE I'M COMING OUT OF MY SKIN" cefaclor Allergy Rash Verified 01/30/19 21:09 codeine Allergy Itching Verified 01/30/19 21:09 Penicillins Allergy Rash Verified 01/30/19 21:09 Home Medications: Home Medications Cyanocobalamin TAB* [Vitamin B12 TAB*] 1 tab PO DAILY 02/10/19 [History Confirmed 02/10/19] PMH/Surg Hx/FS Hx/Imm Hx Previously Healthy: No Endocrine/Hematology History: Reports: Hx Diabetes - DM2 Denies: Hx Anticoagulant Therapy, Hx Systemic Lupus Erythematosus, Hx Thyroid Disease Cardiovascular History: Reports: Hx Hypertension, Other Cardiovascular Problems/ Disorders - patent foramen ovale on aspirin therapy Denies: Hx Congestive Heart Failure, Hx Pacemaker/ICD Respiratory History: Denies: Hx Asthma, Hx Chronic Obstructive Pulmonary Disease (COPD) GI History: Denies: Hx Ulcer History: Denies: Hx Dialysis, Hx Renal Disease Musculoskeletal History: Reports: Hx Scoliosis - A CHILD Denies: Hx Rheumatoid Arthritis Sensory History: Reports: Hx Contacts or Glasses Opthamlomology History: Reports: Hx Contacts or Glasses Neurological History: Reports: Hx Migraine Psychiatric History: Reports: Hx Depression - Cancer History Hx Chemotherapy: No Hx Radiation Therapy: No - Surgical History Surgical History: Yes Surgery Procedure, Year, and Place: Hysterectomy, appendectomy, tonsillectomy & Adenoidectomy, Hx Anesthesia Reactions: No - Immunization History Date of Tetanus Vaccine: 06/02/11 Date of Influenza Vaccine: 03/17 Infectious Disease History: No Infectious Disease History: Reports: Hx Shingles, Traveled Outside the [place] in Last 30 Days Denies: Hx Clostridium Difficile, Hx Hepatitis, Hx Human Immunodeficiency Virus (HIV), Hx of Known/Suspected MRSA, Hx Tuberculosis - Family History Known Family History: Positive: Diabetes Negative: Cardiac Disease, Hypertension - Social History Alcohol Use: Rare Alcohol Amount: wine or beer monthly Hx Substance Use: No Substance Use Type: Reports: None Hx Tobacco Use: No Smoking Status (MU): Never Smoked Tobacco Have You Smoked in the Last Year: No Review of Systems Gastrointestinal: Other - positive - left flank pain Positive: Nausea Positive: hematuria All Other Systems Reviewed And Are Negative: Yes Physical Exam - Summary Physical Exam Summary: Constitutional: Well-developed, Well-nourished, Alert. (-) Distressed Skin: Warm, Dry HENT: Normocephalic; Atraumatic Eyes: Conjunctiva normal Neck: Musculoskeletal ROM normal neck. (-) JVD, (-) Stridor, (-) Nuchal rigidity Cardio: Rhythm regular, rate normal, Heart sounds normal; Intact distal pulses; Radial pulses are 2+ and symmetric. (-) Murmur Pulmonary/Chest wall: Effort normal. (-) Respiratory distress, (-) Wheezes, (-) Rales Abd: Soft, Mild LLQ ttp and moderate left flank tenderness, (-) Distension, (-) Guarding, (-) Rebound Musculoskeletal: (-) Edema Lymph: (-) Cervical adenopathy Neuro: Alert, Oriented x3 Psych: Mood and affect Normal Triage Information Reviewed: Yes Vital Signs On Initial Exam: Initial Vitals Temp Pulse Resp BP Pulse Ox 98.5 F 91 18 141/108 95 02/10/19 13:33 02/10/19 13:33 02/10/19 13:33 02/10/19 13:33 02/10/19 13:33 Vital Signs Reviewed: Yes Diagnostics - Vital Signs Vital Signs Temp Pulse Resp BP Pulse Ox 02/10/19 13:33 98.5 F 91 18 141/108 95 - Laboratory Lab Results: Lab Results 02/10/19 02/10/19 Range/Units 13:52 15:03 WBC 6.9 (3.5-10.8) 10^3/uL RBC 4.75 (3.70-4.87) 10^6 /uL Hgb 14.1 (12.0-16.0) g/dL Hct 40 (35-47) % MCV 84 (80-97) fL MCH 30 (27-31) pg MCHC 35 (31-36) g/dL RDW 14 (10-15) % Plt Count 278 (150-450) 10^3/uL MPV 7.2 L (7.4-10.4) fL Neut % (Auto) 50.9 % Lymph % (Auto) 39.8 % Graves % (Auto) 6.5 % Eos % (Auto) 2.0 % Baso % (Auto) 0.8 % Absolute Neuts (auto) 3.5 (1.5-7.7) 10^3/ul Absolute Lymphs (auto) 2.7 (1.0-4.8) 10^3/ul Absolute Monos (auto) 0.4 (0-0.8) 10^3/ul Absolute Eos (auto) 0.1 (0-0.6) 10^3/ul Absolute Basos (auto) 0.1 (0-0.2) 10^3/ul Absolute Nucleated RBC 0.0 10^3/ul Nucleated RBC % 0.1 Urine Color Red A Urine Appearance Cloudy Urine pH TNP Ur Specific [place] 1.028 (1.010-1.030) Urine Protein TNP Urine Ketones TNP Urine Blood TNP Urine Nitrate TNP Urine Bilirubin TNP Urine Urobilinogen TNP Ur Leukocyte Esterase TNP Urine WBC (Auto) Absent (Absent) Urine RBC (Auto) 3+(>10/hpf) A (Absent) Calcium Oxalate Crystal Present A (Absent) Urine Bacteria Absent (Absent) Urine Glucose TNP Urine Ascorbic Acid TNP Result Diagrams: 02/10/19 15:03 02/10/19 15:03 Lab Statement: Any lab studies that have been ordered have been reviewed, and results considered in the medical decision making process. - Radiology ABD X-Ray Radiology Interpretation Completed By: Radiologist Summary of Radiographic Findings: Impression: 1) The 5 mm left ureter calcification identified on the same day CT examination is not. discretely visualized on this KUB, either at the distal left ureter or the left. hemipelvis. 2) Well-circumscribed round densities in the bilateral pelvis are consistent with. phleboliths. 3) The gas and stool pattern is normal. These findings were reviewed by Dr. Garcia. - CT Abd/Pel CT Interpretation Completed By: Radiologist Summary of CT Findings: Impression: 1. 0.5 CM LEFT URETERAL CALCULUS WITH MILD LEFT HYDROURETER AND PELVIECTASIS. 2. MILD HEPATOMEGALY. These findings were reviewed by Dr. Garcia. Re-Evaluation - Re-Evaluation First Eval Re-Evaluation Time: 17:21 Comment: Pt is KUB cleared. GIGU Course/Dx - Course Course Of Treatment: 54-year-old female with a history of diabetes presents with hematuria and left flank pain. Physical exam of the well-appearing female in no acute distress, + left flank pain. Concern for kidney stone, check a non con CT. Will check Cr and urinalysis assess for infection. - Diagnoses Provider Diagnoses: Kidney stone - Physician Notifications Discussed Care Of Patient With: Domenic Cedeño Time Discussed With Above Provider: 16:18 Instructed by Provider To: Other - Dr. Cedeño, urology, says pt will go home and will call his office tomorrow at 0800 Discharge ED - Sign-Out/Discharge Documenting (check all that apply): Patient Departure - discharge Patient Received Moderate/Deep Sedation with Procedure: No - Discharge Plan Condition: Stable Disposition: HOME Prescriptions: oxyCODONE/Acetamin 5/325 MG* [Percocet 5/325 TAB*] 1 tab PO Q6H PRN 3 Days #12 tab MDD 4 PRN Reason: Pain Patient Education Materials: Kidney Stones (ED) Referrals: Darby Holt MD [Primary Care Provider] - 2 Days Domenic Cedeño MD [Medical Doctor] - 1 Day Additional Instructions: You were seen in the emergency department for abdominal pain. Your CT scan showed a small kidney stone on the left side. You will likely pass this however please call our urologist tomorrow at 8 AM. His take Motrin 600 mg every 8 hours for pain, and Percocet as needed for severe pain. Return for worsening pain, fevers or if you're concerned. If any studies were not completed at the time of discharge you will be called with the relevant results. Please follow up with your primary care doctor in next 2-3 days and return to emergency department for worsening or concerning symptoms. It was a pleasure taking care of you today. - Billing Disposition and Condition Condition: STABLE Disposition: Home - Attestation Statements Document Initiated by Didier: Yes Documenting Scribe: Flaquito Anna Provider For Whom Didier is Documenting (Include Credential): Dr. Cyndy Garcia MD Scribe Attestation: I, Flaquito Anna, scribed for Dr. Cyndy Garcia MD on 02/10/19 at 1942. Scribe Documentation Reviewed: Yes Provider Attestation: The documentation as recorded by the Flaquito leger accurately reflects the service I personally performed and the decisions made by me, Dr. Cyndy Garcia MD Status of Scribe Document: Viewed
[2019-02-10 15:44] LABS: HCG Pregnancy 2.99 mIU/mL
[2019-02-10] MEDS ORDERED: oxyCODONE/Acetamin 5/325 MG* TAB PO ONE (15:52)
[2019-02-10 15:56] LABS: Albumin 4.5 g/dL (3.2-5.2); Albumin/Globulin Ratio 1.7 (1-3); BUN/Creatinine Ratio 23.1 (8-20); Calcium 9.6 mg/dL (8.6-10.3); EGFR African American 149.3 (>60); EGFR Non-African American 123.4 (>60); Globulin 2.6 g/dL (2-4); Potassium 3.3 mmol/L (3.5-5.0); Total Bilirubin 0.5 mg/dL (0.2-1.0); Total Protein 7.1 g/dL (6.4-8.9)
[2019-02-10] MEDS ORDERED: Potassium Chlor TAB* 20 MEQ TAB.ER PO ONE (16:20)
[2019-02-10 17:00] VITALS: BP 124/82
--- NOTE | 2019-02-10 20:04 | CONS ---
CC: Dr. Darby Holt * UROLOGY CONSULTATION: DATE OF CONSULT: 02/10/19 - EMERGENCY DEPT REQUESTING PHYSICIAN: Dr. Garcai in the emergency department. DIAGNOSES: 1. Calculus, left ureter. 2. Left hydronephrosis. HISTORY OF PRESENT ILLNESS: Azul Egan is a 54-year-old lady with no prior history of renal calculi who presented to the emergency department with left-sided abdominal pain and gross hematuria. She denies any fever. She had some nausea, but no vomiting. PAST MEDICAL HISTORY: Significant for: 1. Diabetes mellitus. 2. Hypertension. 3. History of congenital cardiac anomaly (details not available at the time of this dictation). MEDICATIONS ON ADMISSION: 1. Cyanocobalamin (vitamin B12) 1 tablet daily. 2. Aspirin 81 mg 2 tablets daily. 3. Metformin 1000 mg daily. 4. Valsartan/hydrochlorothiazide 80/12.5 one tablet daily. 5. Zoloft 50 mg daily. 6. Trulicity 1.5 mg subcu weekly. 7. Oxycodone p.r.n. ALLERGIES AND INTOLERANCES: BENADRYL, CEFACLOR, CODEINE, and PENICILLIN. REVIEW OF SYSTEMS: She is otherwise in excellent health. She denies any chest pain or shortness of breath. There is no history of recurrent urinary tract infections. PHYSICAL EXAM: Temperature is 98.4, blood pressure 124/82, pulse 73 per minute and regular, respirations 18 per minute, oxygen saturation 97% on room air. Physical exam reveals a pleasant, relatively comfortable middle-aged lady. Cardiovascular Exam: Regular rate and rhythm. S1, S2. Lungs are clear bilaterally. Abdomen is soft with [id number] left flank tenderness. DIAGNOSTIC STUDIES/LAB DATA: Review of labs reveals white count of 6.9, hemoglobin and hematocrit are normal at 14.1 and 40 with a platelet count of 278 ,000. Review of chemistry reveals sodium of 139, potassium of 3.3 (replaced in the emergency department), BUN and creatinine are normal at 12 and 0.5, and glucose is mildly elevated at 113. Serum calcium is 9.6. Alkaline phosphatase is mildly elevated at 106. Urinalysis shows red-colored urine with 3+ rbc's and calcium oxalate crystals, but absent bacteria. I reviewed the CT scan, which reveals a 5 x 2 mm calculus in the mid to distal left ureter with mild left hydronephrosis. There is no evidence of renal calculi. 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 SUMMARY: She is a 54-year-old diabetic with mild left hydronephrosis secondary to a 2 x 5 mm calculus in the mid to distal left ureter. I do not see any indication for surgical intervention at the present time as it is likely that this calculus should be able to be passed within the next 24 to 48 hours. I have instructed her to hydrate herself orally and instructed her to call me if she has increasing pain, vomiting, or temperature greater than 101. [id number]/[facility] #: [id number] MTDD
== END 2019-02-10 17:15 | disposition home or self-care (01) ==
LOC: ED 13:32
DX: N13.2 Hydronephrosis with renal and ureteral calculous obstruction (principal); R16.0 Hepatomegaly, not elsewhere classified; R11.0 Nausea; E11.9 Type 2 diabetes mellitus without complications; Z79.84 Long term (current) use of oral hypoglycemic drugs; I10 Essential (primary) hypertension; F32.9 Major depressive disorder, single episode, unspecified; Z79.82 Long term (current) use of aspirin; Z88.1 Allergy status to other antibiotic agents; Z88.5 Allergy status to narcotic agent; Z88.0 Allergy status to penicillin; Z88.8 Allergy status to other drugs, medicaments and biological substances
CPT/HCPCS: 36415; 74018; 74176; 80053; 81003; 84702; 85025; 96361; 96374; 99283; A9270-GY; J1885

== ENCOUNTER → 2019-02-12 | Day surgery (SDC) | payer BC ==
[~2019-02-12] MED LIST: Acetaminophen TAB* 325 MG PO PRN; Buffered Lidocaine 1% SYRIN* 1 ML/SYRINGE INTRADERM ONE; CMCS:Solifenacin(NF) 5 MG TAB PO ONE; Dexamethasone IV* 4 MG/ML 1 ML (4 MG) ONE; DiMENhydriNATE IV* 50 MG/ML VIAL IV PUSH PRN; DiMENhydriNATE IV* 50 MG/ML VIAL ONE; EPHEDrine (Pressors)* 50 MG/ML VIAL ONE; Famotidine IV* 10 MG/ML 2 ML (20 mg) IV ONE; Famotidine IV* 10 MG/ML 2 ML (20 mg) ONE; Furosemide IV* 10 MG/ML 2 ML VIAL (20 MG) ONE; Iohexol 180 (CONTRAST) 10 ML SDV IV ONE; Ketorolac INJ* 30 MG/ML 1 ML VIAL ONE; Lactated Ringers 1000 ML Bag* 1,000 ML IV SCH; Levofloxacin 500 MG IVPREMIX(* 500 MG/100 ML BAG IVPB ONE; Midazolam* 1 MG/ML 5 ML VIAL (5 MG) ONE; Naloxone* 0.4 MG/ML 1 ML VIAL IV PRN; Ondansetron INJ* 2 MG/ML VIAL ONE; Propofol* 10 MG/ML 20 ML BTL ONE; fentaNYL* 50 MCG/ML 2 ML VIAL (100 MCG VIAL) ONE; oxyCODONE TAB* 5 MG TAB PO PRN
[2019-02-12 19:11] VITALS: BP 136/82
--- NOTE | 2019-02-13 03:13 | OP ---
CC: Dr. Darby Holt * DATE OF OPERATION: 02/12/19 - [facility] DATE OF : 67 SURGEON: Domenic Cedeño MD ANESTHESIOLOGIST: Dr. Matta. ANESTHESIA: General. PRE-OP DIAGNOSES: 1. Left ureteral calculus. 2. Left hydronephrosis. POST-OP DIAGNOSES: 1. Left ureteral calculi. 2. Left hydronephrosis. 3. Hydroureter. OPERATIVE PROCEDURES: 1. Cystoscopy. 2. Left retrograde pyelogram. 3. Left ureteroscopy. 4. Fragmentation and removal of left ureteral calculi and left stent insertion. COMPLICATIONS: None. STENT USED: 6 Tamazight stent, left ureter. OPERATIVE FINDINGS: Two calculi in the left distal to mid ureter (one measuring about 4 to 5 mm, the other measuring about 3 mm) with left hydronephrosis and proximal hydroureter. POSTOPERATIVE CONDITION: Stable. INDICATIONS: Azul Egan is a 54-year-old lady, who has had left flank pain secondary to a calculus in the left ureter. She has been managed conservatively and I had discussed with her regarding continuing conservative management to see if she could pass the stone spontaneously; however, because of persistent and increasing discomfort, she would like to proceed with endoscopic treatment, is now being brought in for the same. DESCRIPTION OF PROCEDURE: After induction of general anesthesia, the patient was placed in dorsal lithotomy position. Sequential compression devices were in place and functioning. Initial cystoscopy revealed normally located right and left ureteral orifices. Clear efflux was noted from the right orifice. There was very little efflux noted from the left orifice suggesting that her obstruction may have worsened since the last imaging study. The bladder was carefully examined. There was a small area in the posterior bladder wall, which appears to be a cluster of prominent veins with no evidence of any suspicious lesions noted. Attention was directed to the left ureter. Retrograde pyelogram revealed fullness of the left collecting system with dilatation of the proximal ureter. A 6-Tamazight semi-rigid ureteroscope was introduced and advanced under direct vision. About 5 to 6 cm above the ureteral orifice, there was initially a 2 to 3 mm calculus noted. This was engaged using a 3-pronged grasper and was removed into the bladder from where it was later withdrawn. The ureteroscope was then advanced more proximally and just above that original stone, a second larger stone was noted with some surrounding edema and inflammation. This was fairly sharp edged and was also engaged with the grasper. It was a soft friable stone and broke up into multiple fragments and all of the sizable fragments were retrieved. At the end of the procedure, a final look confirmed no remaining sizable fragments and no evidence of any injury to the ureter. A 6-Tamazight stent was introduced and positioned under fluoroscopy with good proximal and distal positioning obtained. The bladder was emptied. The patient tolerated the procedure satisfactorily and was transferred back to the recovery area in stable condition. [id number]/[facility] #: [id number] [facility]
== END | disposition home or self-care (01) ==
LOC: OR 14:27
PROVIDERS: ATTEND Urology
DX: N13.2 Hydronephrosis with renal and ureteral calculous obstruction (principal); R31.0 Gross hematuria; E11.9 Type 2 diabetes mellitus without complications; I11.9 Hypertensive heart disease without heart failure; Z79.84 Long term (current) use of oral hypoglycemic drugs; Z79.82 Long term (current) use of aspirin
CPT/HCPCS: 74420; 76000; 82365; 88300; C1876; J1100; J1240; J1885; J1940; J1956; J2250; J2405; J2704; J3010

== ENCOUNTER 2019-07-21 15:26 | Emergency (ER) | payer BC ==
--- OUTSIDE RECORDS SUMMARY | 2019-07-21 15:45 | XMS REPORT | Continuity of Care Document ---
:1965 External Reference #:[id number] Author Name Emmy Steiner PA-C Address [address] [place] [address] Care Team Providers Name Role Phone Darby Holt M.D. - Internal Care Team Information Mechanical Technician [phone] Medicine Problems Active Problems Provider Date Essential hypertension Onset: 12/06/2009 Impacted cerumen Michael Bennett MD Onset: 07/26/2014 Acute otitis externa Michael Bennett MD Onset: 07/26/2014 Social History Type Date Description Comments Sex Unknown Tobacco Use Start: Unknown Never Smoked Cigarettes Tobacco Use Start: Unknown Never Smoked Cigars Tobacco Use Start: Unknown Never Smoked A Pipe Smoking Status Reviewed: 06/26/19 Never Smoked A Pipe Smokeless Tobacco Never [...] CPT Code Status Date Vaccine Lot # [id number] Given 03/17/2014 Influenza Virus Vaccine, 3 Years Of Age And Above, Intramuscular Vital Signs Date Vital Result Comment 06/26/2019 8:38am Weight 175.00 lb Weight 79.380 kg Height 68 inches 5'8" Height in cm's 172.7 cm BMI (Body Mass Index) 26.6 kg/m2 04/09/2019 8:36am Weight 175.00 lb Weight 79.380 kg Height 68 inches 5'8" Height in cm's 172.7 cm BMI (Body Mass Index) 26.6 kg/m2 Results Description No Information Available Procedures Date Code Description Status 06/26/2019 82045 Removal Wax Impaction Completed 04/09/2019 70864 Removal Wax Impaction Completed 01/08/2019 75887 Removal Wax Impaction Completed Medical Devices Description No Information Available Encounters Type Date Location Provider Dx Diagnosis Office Visit 01/08/2019 [place] Michael Bennett H61.23 Impacted cerumen, 8:30a 06/03/07 bilateral H60.543 Acute eczematoid otitis externa, bilateral Assessments Date Code Description Provider 06/26/2019 H61.23 Impacted cerumen, bilateral Emmy Steiner PA-C 04/09/2019 H61.23 Impacted cerumen, bilateral RuMichael amaral MD 01/08/2019 H61.23 Impacted cerumen, bilateral RuparMichael santos MD 01/08/2019 H60.543 Acute eczematoid otitis externa, bilateral aSbrina, Michael PIZARRO Plan of Treatment Future Appointment(s):08/24/2019 8:30 am - Michael Bennett MD at [facility] - [facility]-CH61.23 Impacted cerumen, bilateral Functional Status Description No Information Available Mental Status Description No Information Available Referrals Description No Information Available
[2019-07-21 15:51] LABS: Rapid Strep Molecular Negative (Negative)
--- NOTE | 2019-07-21 15:55 | ED ---
Influenza-Like Illness - HPI Summary HPI Summary: Patient is a 54 y/o F presenting to the ED for a chief complaint of influenza- like symptoms that began a few hours ago on 07/21/19. Patient reports generalized body aches, sore throat, chills, fever, and nausea. Patient denies diarrhea, abdominal pain, vomiting, rash, or dysuria. She denies taking any OTC medications for her symptoms. No aggravating or alleviating factors are reported. She denies any positive sick contact at home. Patient received an influenza vaccination this season. She took a prophylaxis for influenza due to exposure to someone with influenza at work. Patient denies the possibility of , as she has had a hysterectomy. Patient admits occasional alcohol use , but denies tobacco or drug use. She takes Trulicity, Metformin, 81 mg aspirin , and hypertension medication. Patients medication reviewed this visit. - History of Current Complaint Chief Complaint: EDFluSymptoms Time Seen by Provider: 07/21/19 15:38 Hx Obtained From: Patient Onset/Duration: Sudden Onset, Lasting Hours, Still Present Severity: Moderate Associated Signs & Symptoms: Fever - In vitals, 97.6 F, Myalgia - Generalized body aches, Sore Throat Related Hx: Possible Flu/Infectious Exposure - Allergy/Home Medications Allergies/Adverse Reactions: Allergies Allergy/AdvReac Type Severity Reaction Status Date / Time diphenhydramine Allergy Severe "MAKES ME Verified 02/12/19 15:25 [From Benadryl] FEEL LIKE I'M COMING OUT OF MY SKIN" cefaclor Allergy Rash Verified 02/12/19 15:25 codeine Allergy Itching Verified 02/12/19 15:25 Penicillins Allergy Rash Verified 02/12/19 15:25 Home Medications: Home Medications Atorvastatin* [Lipitor*] 20 mg PO DAILY 07/21/19 [History Confirmed 07/21/19] PMH/Surg Hx/FS Hx/Imm Hx Previously Healthy: Yes Endocrine/Hematology History: Reports: Hx Diabetes - DM2 Denies: Hx Anticoagulant Therapy, Hx Systemic Lupus Erythematosus, Hx Thyroid Disease Cardiovascular History: Reports: Hx Hypertension, Other Cardiovascular Problems/ Disorders - patent foramen ovale on aspirin therapy Denies: Hx Congestive Heart Failure, Hx Pacemaker/ICD Respiratory History: Denies: Hx Asthma, Hx Chronic Obstructive Pulmonary Disease (COPD) GI History: Denies: Hx Ulcer History: Denies: Hx Dialysis, Hx Renal Disease Musculoskeletal History: Reports: Hx Scoliosis - A CHILD Denies: Hx Rheumatoid Arthritis Sensory History: Reports: Hx Contacts or Glasses Denies: Hx Legally Blind, Hx Deafness Opthamlomology History: Reports: Hx Contacts or Glasses Denies: Hx Legally Blind EENT History: Denies: Hx Deafness Neurological History: Reports: Hx Migraine Psychiatric History: Reports: Hx Depression - Cancer History Hx Chemotherapy: No Hx Radiation Therapy: No - Surgical History Surgical History: Yes Surgery Procedure, Year, and Place: Hysterectomy, appendectomy, tonsillectomy & Adenoidectomy, Hx Anesthesia Reactions: No - Immunization History Date of Tetanus Vaccine: 06/02/11 Date of Influenza Vaccine: 03/17 Infectious Disease History: Yes Infectious Disease History: Reports: Hx Shingles Denies: Hx Clostridium Difficile, Hx Hepatitis, Hx Human Immunodeficiency Virus (HIV), Hx of Known/Suspected MRSA, Hx Tuberculosis, Traveled Outside the [place] in Last 30 Days - Family History Known Family History: Positive: Diabetes Negative: Cardiac Disease, Hypertension - Social History Occupation: Employed Full-time Lives: With Family Alcohol Use: Occasionally Alcohol Amount: wine or beer monthly Hx Substance Use: No Substance Use Type: Reports: None Hx Tobacco Use: No Smoking Status (MU): Never Smoked Tobacco Have You Smoked in the Last Year: No Review of Systems Positive: Fever - In vitals, 97.6 F, Chills Positive: Sore Throat Positive: Nausea. Negative: Abdominal Pain, Vomiting, Diarrhea Negative: dysuria Positive: Myalgia - Generalized body aches Negative: Rash All Other Systems Reviewed And Are Negative: Yes Physical Exam - Summary Physical Exam Summary: Vital Signs Reviewed: Yes A+Ox3, no distress Eyes: Conjunctiva Clear, KENNETH. EOM intact and full ENT: Hearing grossly normal TM x 2 clear, mmoist, uvula midline, no exudate, no erythema Neck: Positive: Supple Respiratory: Positive: No respiratory distress, No accessory muscle use + CTA throughout no w/r Cardiovascular: RRR nl s1, s2 no m/r CBT <2 sec abd soft + BS nt/nd no guarding, no distension Musculoskeletal Exam: RUANO x 4 without difficulty Strength Intact, ROM Intact Neurological: Positive: Alert, + sensation throughout Psychological: Positive: Normal Response To banking paralegal Skin: Positive: no rash, no ecchymosis Triage Information Reviewed: Yes Vital Signs On Initial Exam: Initial Vitals Temp Pulse Resp BP Pulse Ox 97.6 F 101 18 132/90 96 07/21/19 15:28 07/21/19 15:28 07/21/19 15:28 07/21/19 15:28 07/21/19 15:28 Vital Signs Reviewed: Yes Procedures - Sedation Patient Received Moderate/Deep Sedation with Procedure: No Diagnostics - Vital Signs Vital Signs Temp Pulse Resp BP Pulse Ox 07/21/19 15:28 97.6 F 101 18 132/90 96 - Laboratory Lab Results: Lab Results 07/21/19 Range/Units 15:31 Influenza A (Rapid) Pending Influenza B (Rapid) Pending Lab Statement: Any lab studies that have been ordered have been reviewed, and results considered in the medical decision making process. Discharge ED - Sign-Out/Discharge Documenting (check all that apply): Patient Departure - Discharge - Discharge Plan Condition: Stable Disposition: HOME Prescriptions: Oseltamivir Phosphate [Tamiflu] 75 mg PO DAILY #10 capsule Patient Education Materials: Viral Syndrome (ED) Forms: *Work Release Referrals: Darby Holt MD [Primary Care Provider] - Additional Instructions: - Stay well hydrated. Drink plenty of non-alcoholic, non-caffinated beverages. - Alternate ibuprofen (Advil, Motrin) 600mg and Tylenol every 3 hours for pain or fever. Take with food. Do NOT take for more than 4-5 days. - These infections are spread by secretions - do NOT share eating or drinking utensils - clean items you share with other people such as cell phones, computer mouse, TV remote, computer tablets,etc. Once you start to feel better, change your toothbrush and your pillowcase. - humidify the air in the room where you sleep - boil water, run a hot steam shower, vaporizer, cups of water by heat register - okay to take over the counter decongestant and cough medication - get plenty of restful sleep. -Take Tamiflu as prescribed - contact your doctor or return with questions or concerns. If you have increased pain, uncontrolled fevers, vomiting or any other concerns it is recommended you contact your doctor or return to the emergency department for further evaluation and treatment - Attestation Statements Document Initiated by Scribe: Yes Documenting Scribe: Deana Hyman Provider For Whom Scribe is Documenting (Include Credential): Eleanor Vincent MD Scribe Attestation: I, Deana Hyman, scribed for Eleanor Vincent MD on 07/21/19 at 1611. Status of Scribe Document: Ready
[2019-07-21 15:57] LABS: Influenza A Molecular Negative (Negative); Influenza B Molecular Negative (Negative)
[2019-07-21] MEDS ORDERED: Acetaminophen TAB* 325 MG PO ONE (16:00)
[2019-07-21 16:22] VITALS: BP 128/88
== END 2019-07-21 16:21 | disposition home or self-care (01) ==
LOC: ED 15:26
DX: B34.9 Viral infection, unspecified (principal); E11.8 Type 2 diabetes mellitus with unspecified complications; Z79.84 Long term (current) use of oral hypoglycemic drugs; I10 Essential (primary) hypertension; Z79.899 Other long term (current) drug therapy; Z88.1 Allergy status to other antibiotic agents; Z88.5 Allergy status to narcotic agent; Z88.0 Allergy status to penicillin; Z88.8 Allergy status to other drugs, medicaments and biological substances
CPT/HCPCS: 87651; 99282; A9270-GY